=== PATIENT | female | born 1955 | race Caucasian/White ===

== ENCOUNTER 2018-06-11 13:00 | Outpatient (RCR) | payer OTHER, SELFPAY ==
--- NOTE | 2018-05-14 15:34 | PTTR_ITS ---
DATE: 05/14/18 SUBJECTIVE: Ghazala reporting feeling good today. She notes the burning sensation on the top of her shoulder she felt after last session did not last. She thinks she is moving her arm a little better today. OBJECTIVE: Manual therapy: (07774z3). Mobilize right GH joint into all planes. Begin with scapular jiggles, inferior and posterolateral glides. Overpressure stretching into all planes to her tolerance providing distraction through flexion ROM for improvements in comfort. She tolerates 140 degrees flexion here today with end range discomfort. ER continues to be tight to about 20-25 degrees. Utilized METs to increase ROM without a positive effect. Internal rotation is to 60 degrees with protraction at the scapula. Therapeutic procedures (03720n7). * X See flow sheet: For gentle scapular stabilization activities, AAROM tasks. Add in scapular depression to pt's program today with good tolerance. * X Provided skilled instruction in proper exercise performance: * X Provided skilled manual cues to facilitate proper muscle recruitment and/ or movement pattern: Tactile cueing provided through right scapula to avoid compensatory movement patterns with multiple exercises today. She does improve her technique and positioning. * X Other: Ends with UBE cycle via wellness program followed by 10 minutes of cryo therapy. Direct treatment time: 25 minutes Total treatment time: 40 minutes Rona Escamilla, SIGNAL MECHANIC
--- NOTE | 2018-05-18 14:17 | PTTR_ITS ---
DATE: 05/18/18 SUBJECTIVE: Pt states that she is still having significant limitation of the shoulder but she does finally see her surgeon today. OBJECTIVE: Manual therapy: (61522e2). Pt placed in the supine position receiving gentle oscillatory lateral distraction as well as scapular jiggles to decrease muscle tension. Gently stretched through the pectorals and biceps with antagonist muscle action with low load long duration holds. Pt mobilized into 90* of abduction but significantly elevates the shoulder girdle adding to some of her compensation. A posterior lateral glide of the humeral head is applied to try to release some of this apprehension and insecurity of the shoulder but does very little to decrease the compensatory movement. She is mobilized from 70* of scaption into about 40* of ER when trying to approach 90* of abduction with the ER held at its terminal range. She instinctively splints and guards the shoulder releasing any of the ER that was gained. IR is able to be mobilized to about 45* with overhead shoulder flexion utilized glenohumeral approximation to relieving traction. This is available close to 135* today. She receives a gentle posterior cuff mobilization for desensitization myofascial release. Pt tolerates tx well. Direct treatment time: 30 minutes Total treatment time: 30 minutes
--- NOTE | 2018-05-20 11:18 | PTTR_ITS ---
DATE: 05/20/18 SUBJECTIVE: Ghazala reporting feeling about the same. She does note that her surgeon did want her to start pool therapy. OBJECTIVE: Manual therapy: (53936y8). Mobilizations applied at the right GH joint all planes. Perform inferior and posterolateral glides, PROM and overpressure stretching into each plane. She tolerates 140 degrees flexion, ER to 25, IR to 70, pure abduction to 70 degrees and then going into the scaption plane she tolerates 100 degrees with some compensatory movement patterns. In left sidelying perform DTM techniques to the posterior capsule and upper trap musculature. Therapeutic procedures (46971c8). * X See flow sheet: For AAROM activities, light scapular stabilization. Add in rhythmic stabilization and serratus punch ups in supine position today. * X Provided skilled instruction in proper exercise performance: * X Provided skilled manual cues to facilitate proper muscle recruitment and/ or movement pattern: * X Other: Ends with ice x 10 minutes. Direct treatment time: 30 minutes Total treatment time: 40 minutes Rona Escamilla, WIRE FRAME LAMP SHADE MAKER
--- NOTE | 2018-05-21 15:26 | AT_ITS ---
05/21/18 Pt no showed for todays scheduled PT appt.
--- NOTE | 2018-05-22 11:23 | PTTR_ITS ---
DATE: 05/22/18 SUBJECTIVE: Ghazala reporting some discomfort into her arm pit. Otherwise feels about the same. She is a little worried about loosing ground next week only getting mobilized one time but she is looking forward to trying out the pool. OBJECTIVE: We discuss visit options next week and pt will try the pool 2x and clinic 1x and see how this influences her symptoms. If she feels like she is getting tight we can change that the following week as necessary. Manual therapy: (27694i6). Mobilize right GH joint all planes of motion. Provide inferior and posterolateral glides, PROM into all planes. Perform overpressure stretching into shoulder flexion, and ER where she tolerates 140 degrees flexion, ER to 40 degrees today all with end range discomfort. Perform STM through pec minor, subscapularis, posterior cuff and upper trap musculature. Therapeutic procedures (92172d9). * X See flow sheet: Focus on scapular stabilization including rhythmic stabilization at 90 degrees of shoulder flexion, serratus punch ups and ball vs. wall exercise. * X Provided skilled instruction in proper exercise performance: * X Provided skilled manual cues to facilitate proper muscle recruitment and/ or movement pattern: Tactile cueing and visual feedback in the mirror to decrease disaster director movement patterns. * X Other: Ends with ice x 10 minutes to the right shoulder. Direct treatment time: 30 minutes Total treatment time: 30 minutes Rona Escamilla PTA
--- NOTE | 2018-05-26 09:00 | PTTR_ITS ---
DATE: 05/26/18 SUBJECTIVE: Ghazala reports that she just came from her PCP, I was told I have diabetes, but I don't know much about it. OBJECTIVE: * [X] Aquatic Therapy - (10625 x1): Patient completed a therapeutic exercise program in an aquatic setting for UE strengthening and improved shoulder ROM with decompression for pain relief, as per flow sheet. Patient required constant cuing throughout for shoulder depression. Patient required skilled instruction for proper exercise performance. Patient ends with UBE cycling. Direct treatment time: 20 minutes Total treatment time: 35 minutes
--- NOTE | 2018-05-28 13:53 | 90DAYPTPN_ITS ---
90 DAY PROGRESS NOTE DATE: 05/28/18 REFERRING: Claudio Pham MD REFERRING PROVIDER DIAGNOSIS:: S/P Right side distal clavicle resection, capsular release, rotator cuff repair PHYSICAL THERAPY DIAGNOSIS: Difficulty reaching overhead, difficulty negotiating objects with the R UE. REPORTING PERIOD (for progress note and discharge note only): 02/17/18 through SUBJECTIVE: I keep hoping that it will loosen up and I think it has a little bit it is still pretty stiff. OBJECTIVE: Treatment: Manual Therapy (69619a3): Patient was placed in supine and mobilized with oscillatory lateral distraction and scapular jiggles to decrease muscle tension. She was lightly stretched through the pectorals and biceps with low load long duration holds. Patient then mobilized through the plane of abduction with use of a posterior lateral guided through the humeral head. She was placed in 90 degrees of scaption and mobilized through light ER to about 45 degrees. With horizontal abduction into 90 degrees of abduction she does lose a few degrees of motion to 35 degrees. Patient was guided to 45 degrees of internal rotation. She was then mobilized through the cervical spine with gentle traction and guided into cervical retraction. Gentle passive rotations were promoted with good tolerance to end limit. Light stretching of the levator scapulae and upper trapezius with low load long duration holds. Gentle soft tissue mobilization to the posterior cuff at the end of the session. Treatment time: 40 minutes of direct patient care. ASSESSMENT: X Patient requires continued skilled Physical Therapy intervention to remediate the above functional limitations to return to: * X Premorbid level of function. * X Full functional mobility. * X Return to work demands. * X Improve quality of life. Patient has made slight progress in her motion but is still quite limited in active practice. Her active motion is only a fraction of her passive motion in terms of flexion and she still has a long way to go with external and internal rotation. She has gained some weight during this long ordeal with the shoulder and with a comorbidity through the ankle which has increased her health risk. She has been placed in the pool with therapy for strengthening of the right upper extremity and for global conditioning. Goal progression: (copy/paste from IE or last PN). 1. Able to lift and object of 10# to shoulder height. Goal not met 2. Patient making a full functional return to work. Goal not met 3. 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 Goal not met PLAN: Patient to continue treatment, 3 x per week, for 5 weeks, adjusting frequency of visits per patient symptoms and response to treatment. Treatment to include: * X Manual therapy - 31503U-[] (indicate any further detail here): [] * X Therapeutic exercise - 29975U-[]. * X Ultrasound: * X EStim, unattended - 39287B-[]. * Aquatic Therapy Program Thank you for your continued support of this patient!
--- NOTE | 2018-05-28 16:22 | PTTR_ITS ---
DATE: 05/28/18 SUBJECTIVE: Ghazala states that she was a little sore following her last aquatic therapy session. OBJECTIVE: * [X] Aquatic Therapy - (39044 x2): Patient completed a therapeutic exercise program in an aquatic setting for UE strengthening and improved ROM with decompression for pain relief, as per flow sheet. Patient was able to tolerate a progression in her program today, see flow sheet for modifications made to reps and resistance. Patient continues to require cuing for posture and appropriate movement mechanics, specifically to avoid shoulder elevation with all exercises. Patient ends by simulating UBE cycling. Direct treatment time: 30 minutes Total treatment time: 40 minutes
--- NOTE | 2018-06-04 08:58 | PTTR_ITS ---
DATE: 06/04/18 SUBJECTIVE: Ghazala states that her shoulder feels much better following stretching performed in the clinic today, prior to her aquatic therapy session. OBJECTIVE: * [X] Aquatic Therapy - (29164 x1): Patient completed a therapeutic exercise program in an aquatic setting for scapular stabilization and shoulder strengthening with decompression for pain relief, as per flow sheet. Patient tolerated a slight progression in her program today, modifications made to reps are noted on flow sheet. Patient required cuing for appropriate posture and shoulder depression throughout session. Patient ends with simulation of UBE cycling. Direct treatment time: 15 minutes Total treatment time: 30 minutes
--- NOTE | 2018-06-04 11:00 | PTTR_ITS ---
DATE: 06/04/18 SUBJECTIVE: Ghazala reports that her shoulder seems a little more comfortable today. She did receive a cortisone injection to the R shoulder on Friday. She thinks this is helping a little bit. She notes some tightness through her armpit today. Manual therapy: ([id number]). Mobilize the R shoulder into all planes of motion , performed inferior/posterior lateral gliding, PROM and stretching in all planes. She does get some sensation of pulling through the pec and subscapularis when stretching into flexion. I do clear out the pec minor and subscap musculature with very little improvement in her comfort with stretching. She tolerates 130 degrees flexion with end range discomfort ER to 30, IR to 60 to 70 degrees with some protraction noted. In L sidelying perform deep tissue mobilization techniques to posterior capsule , upper trap and infraspinatus fossa. Defer Therex here in the clinic as patient is headed to the pool for aquatic therapy. Direct treatment time: 25 mins Total treatment time: 25 mins LB/dl
--- NOTE | 2018-06-09 10:59 | AT_ITS ---
06/09/18 ATx2 See flow sheet. Completing (R) UE scap thoracic stabilization program with open chain glenohumeral activities, skilled cueing throughout for proper lower trap and shoulder depression activation. Progressions made. Total Time 30 minutes Direct Time 30 minutes
--- NOTE | 2018-06-09 12:50 | PTTR_ITS ---
DATE: 06/09/18 SUBJECTIVE: Ghazala stating that her shoulder feels the same. She notes tightness up into her neck and into her arm pit. OBJECTIVE: Manual therapy: (87508o5). Mobilize right shoulder into all planes of motion. Perform inferior and posterolateral gliding, PROM and overpressure stretching to her tolerance. Flexion reaches 130, ER 30, IR 70. Perform DTM techniques through the pec minor musculature. In left sidelying clear trigger point in the right upper trap and infraspinatus as well as deep tissue work through the posterior capsule. Pt is then going to her aquatic therapy appointment. Direct treatment time: 30 minutes Total treatment time: 30 minutes Rona Escamilla PTA
--- NOTE | 2018-06-11 08:23 | AT_ITS ---
06/11/18 SUBJECTIVE: No new complaints. She does feel that the pool is helpful. OBJECTIVE: Aquatic Therapy 47455n3: Pt instructed in her aquatic therapy program as noted on her flow sheet for UE ROM activities, scapular stabilization and general conditioning. Skilled cueing provided for appropriate movement mechanics and scapular stabilization. See flow sheet for specifics. Direct time: 20 minutes of direct one on one skilled care with remaining time spent on less skilled task and cardiovascular exercise. Total time: 35 minutes Rona Escamilla, CLIENT TECHNICAL SPECIALIST
== END 2018-06-12 23:59 | disposition home or self-care (01) ==
LOC: PT 13:00
PROVIDERS: PCP Nurse Practitioner Family; Referring Provider Orthopaedic Surgery Adult Reconstructive Orthopaedic Surgery; Visit Provider Orthopaedic Surgery Adult Reconstructive Orthopaedic Surgery
DX: M75.31 Calcific tendinitis of right shoulder (principal); Z47.89 Encounter for other orthopedic aftercare
CPT/HCPCS: 97110; 97113; 97140

== ENCOUNTER 2018-11-16 00:19 | Outpatient (CLI) | payer MEDICARE, BC, SELFPAY ==
--- NOTE | 2018-11-16 11:24 | DI.MAMMO_ITS ---
SYMPTOMS/DIAGNOSIS: SCREENING, Z12.31 MAMMOGRAM: Mammograms were interpreted according to the usual protocol including computer analysis with CAD system, tomosynthesis and C view imaging. Comparison is made with exams from 2015 through 2018. The breasts are composed of heterogeneously dense fibroglandular tissue, breast density Category C. There has been no change in an ovoid area of density in the upper outer quadrant of the right breast. Benign appearing calcifications are again noted. No suspicious masses or suspicious microcalcifications are seen. IMPRESSION: Category 2, negative mammogram with benign findings. Yearly screening mammography is recommended. [facility] ASSESSMENT OF FINDINGS: Negative with benign findings. Category 2. Patient will receive a letter notifying them of these results. Bi-RADS category C. The breasts are heterogeneously dense, which may obscure small masses.
== END 2018-11-16 00:39 ==
PROVIDERS: PCP Nurse Practitioner Family; Visit Provider Nurse Practitioner Family
DX: Z12.31 Encounter for screening mammogram for malignant neoplasm of breast (principal)
CPT/HCPCS: 77063; 77067

== ENCOUNTER 2019-02-09 14:34 | Outpatient (REF) | payer MEDICARE, BC, SELFPAY ==
--- NOTE | 2019-02-09 13:45 | SKI_PTH ---
PATIENT: Ghazala Song LOC: [facility] U#:[id number] AGE/SX: 63/F ROOM: RE02/09/[address]: Scarlet Brady : 1955 BED: DIS: 02/09/2019 SPEC #: [id number] RECD: 02/10/19 12:41 STATUS: ADRIANNA REEvan #: [id number] KATIE: 02/09/19 13:[address]: Scarlet Brady DEPT: Surgical Specimen RECD BY: Yadi Comer Tissues: 1 - SKIN BIOPSY(SHAVE/PUNCH) Procedures: SKIN LEVEL 4 Comments: [id number]
== END 2019-02-09 14:54 ==
LOC: NCHCN 14:34
PROVIDERS: PCP Nurse Practitioner Family; Visit Provider Nurse Practitioner Family
DX: C44.519 Basal cell carcinoma of skin of other part of trunk (principal)
CPT/HCPCS: 88305

== ENCOUNTER 2019-03-15 12:27 | Outpatient (REF) | payer MEDICARE, BC, SELFPAY ==
[2019-03-15 22:27] LABS: ALT 41 U/L (12-78); AST 25 U/L (15-37); Albumin 3.9 g/dL (3.4-5.0); Alkaline Phosphatase 81 U/L (46-116); Anion Gap 10.2 mmol/L (3-11); BUN 9 mg/dL (7-18); Bilirubin, Total 0.5 mg/dL (0.2-1.0); CO2 28.8 mmol/L (21.0-32.0); CREATININE 0.82 mg/dL (0.55-1.02); Calculated LDL 70; Chloride 101 mmol/L (98-107); Cholesterol 141 mg/dL (50-200); Glucose 145 mg/dL (70-100); HDL Cholesterol 49 mg/dL (40-60); Potassium 3.8 mmol/L (3.5-5.1); Sodium 140 mmol/L (136-145); Total Protein 7.1 g/dL (6.4-8.2); Triglyceride 114 mg/dL (30-150); Vitamin B12 844 pg/mL (193-986)
== END 2019-03-15 12:47 ==
LOC: NCHCN 12:27
PROVIDERS: PCP Nurse Practitioner Family; Visit Provider Nurse Practitioner Family
DX: E11.9 Type 2 diabetes mellitus without complications (principal); I10 Essential (primary) hypertension; F41.8 Other specified anxiety disorders; G47.33 Obstructive sleep apnea (adult) (pediatric); G47.61 Periodic limb movement disorder; K76.0 Fatty (change of) liver, not elsewhere classified
CPT/HCPCS: 80053; 80061; 83721; 82607; 83735

== ENCOUNTER 2019-03-23 00:30 | Outpatient (CLI) | payer MEDICARE, BC, SELFPAY ==
--- NOTE | 2019-03-23 14:30 | DI.RAD_ITS ---
SYMPTOMS/DIAGNOSIS: ASYMPTOMATIC POSTMENOPAUSAL STATUS, Z78.0 DEXA SCAN: No REMIGIO was done due to patient's right shoulder surgery. For the lumbar spine, a T score of -1.4 and a Z score of 0.4 are consistent with osteopenia and an increased fracture risk. For the left hip, a T score of -1.7 and a Z score of -0.4 are consistent with osteopenia and an increased fracture risk. For the left forearm, a T score of -1.8 and a Z score of -0.1 are consistent with osteopenia and an increased fracture risk.
== END 2019-03-23 00:50 ==
PROVIDERS: PCP Nurse Practitioner Family; Visit Provider Nurse Practitioner Family
DX: Z13.820 Encounter for screening for osteoporosis (principal); Z78.0 Asymptomatic menopausal state; M85.88 Other specified disorders of bone density and structure, other site; M85.852 Other specified disorders of bone density and structure, left thigh; M85.832 Other specified disorders of bone density and structure, left forearm
CPT/HCPCS: 77080

== ENCOUNTER 2019-09-16 12:39 | Outpatient (REF) | payer MEDICARE, BC, SELFPAY ==
[2019-09-16 22:23] LABS: Abs Immature Grans 0.01 k/cumm (0.0-0.09); Absolute Basophil Count 0.04 k/cumm (0.0-0.2); Absolute Eosinophil Count 0.08 k/cumm (0.0-0.7); Absolute Lymphocyte Count 1.92 k/cumm (1.2-3.4); Absolute Monocyte Count 0.48 k/cumm (0.11-0.7); Absolute Neutrophil Count 2.27 k/cumm (1.2-6.7); Basophils % 0.8; Eosinophils % 1.7; HCT 42.2 % (36.0-46.0); HGB 13.6 g/dL (12.0-15.5); Immature Grans % 0.2; Mean Corp. HGB Concentration 32.2 g/dL (32.0-36.0); Mean Corpuscular Hemoglobin 29.8 pg (27.0-33.0); Mean Corpuscular Volume 92.5 fL (80-95); Mean Platelet Volume 10.2 fL (8.0-11.0); Neutrophils % 47.3; Platelet Count 214 x1000/uL (130-400); RBC 4.56 m/cumm (4.00-5.20); RBC Distribution Width 13.1 % (11.7-14.6)
[2019-09-16 22:33] LABS: Iron 93 ug/dL (50-170)
[2019-09-16 22:58] LABS: Anion Gap 8.7 mmol/L (3-11); BUN 16 mg/dL (7-18); CO2 31.3 mmol/L (21.0-32.0); CREATININE 0.83 mg/dL (0.55-1.02); Chloride 101 mmol/L (98-107); Glucose 88 mg/dL (74-106); Potassium 3.9 mmol/L (3.5-5.1); Sodium 141 mmol/L (136-145); TSH (W/Ref FT4) 2.19 uIU/mL (0.36-3.74); Vitamin B12 510 pg/mL (193-986)
[2019-09-16 23:01] LABS: Vitamin D 25 Total 41.9 ng/ml (30-100)
== END 2019-09-16 12:59 ==
LOC: NCHCN 12:39
PROVIDERS: PCP Nurse Practitioner Family; Visit Provider Nurse Practitioner Family
DX: I10 Essential (primary) hypertension (principal); E11.9 Type 2 diabetes mellitus without complications; K76.0 Fatty (change of) liver, not elsewhere classified; K30 Functional dyspepsia; G47.61 Periodic limb movement disorder; G47.33 Obstructive sleep apnea (adult) (pediatric); M85.80 Other specified disorders of bone density and structure, unspecified site
CPT/HCPCS: 80048; 82306; 82607; 83540; 83735; 84443; 85025

== ENCOUNTER → 2020-04-07 13:32 | Outpatient (BNVA) | payer MEDICARE, BC, SELFPAY | PROVIDERS: PCP Nurse Practitioner Family; Referring Provider Nurse Practitioner Family; Visit Provider Surgery | DX: R10.13 Epigastric pain (principal); Z01.818 Encounter for other preprocedural examination; I10 Essential (primary) hypertension | CPT/HCPCS: 99202; 99213 ==

== ENCOUNTER 2020-04-10 08:15 | Outpatient (CLI) | payer MEDICARE, BC, SELFPAY ==
[2020-04-10 23:24] LABS: COVID-19 RT-PCR UVMMC Result Negative (Negative)
== END 2020-04-10 08:35 ==
PROVIDERS: PCP Nurse Practitioner Family; Visit Provider Surgery
DX: Z01.818 Encounter for other preprocedural examination (principal); Z03.818 Encounter for observation for suspected exposure to other biological agents ruled out
CPT/HCPCS: U0003

== ENCOUNTER 2020-04-12 07:13 | Day surgery (SDC) | payer MEDICARE, BC, SELFPAY ==
[2020-04-12 07:37] VITALS: BP 144/75; PULSE 81; RESP 18; TEMP 36.5; O2SAT 98
--- NOTE | 2020-04-12 07:37 | ENDO_ITS ---
Date of service: 04/12/20 Time of Service: 08:26 Endoscopy Report DATE OF PROCEDURE: 04/12/20 PRE-OP DIAGNOSIS: Intermittent dyspepsia, hx of GERD POST-OP DIAGNOSIS: same (mild esophagitis) PROCEDURE: EGD with biopsies SURGEON: Dayanara Hutchison ANESTHESIA: other (General/ ASA 2/Raudel Silverman CRNA) ESTIMATED BLOOD LOSS: 5 PATHOLOGY: other (Antrum bx, GE junction bx) COMPLICATIONS: None DISPOSITION: same day INDICATIONS: Mrs. Song is a pleasant 65 year old female being seen in the office today for increased and heartburn type symptoms. The patient has had heartburn and GERD in the past and was started on omeprazole 40 mg daily which has controlled her symptoms. About 3 or 4 weeks ago she developed daily heartburn symptoms despite her 40 mg of omeprazole daily so she was referred to our office. She tells me today that the heartburn symptoms have resolved. She continues on her omeprazole 40 mg daily. She denies any other symptoms like diarrhea. She does not recall being under more stress when she was having the symptoms. She denies any changes in bowel habits nausea or vomiting. She has never had an upper endoscopy before. FINDINGS: mild inflammation of the stomach and mild esophagitis PROCEDURE DESCRIPTION: After informed consent was obtained the patient was take to the procedure room and placed in a supine position. Monitors were applied and a time out was done. The patients name, date of , procedure type, allergies to medications and metal in their body was reviewed. A bite block was placed and the patient was sedated. Once sedated and comfortable the gastroscope was advanced through the oropharynx which was grossly normal into the esophagus. The proximal and mid- esophagus were normal. In the distal esophagus there was mild inflammation noted. The scope was advanced into the stomach and through the pylorus into the 3rd portion of the duodenum. The duodenum was noted to be normal. The scope was retracted back into the stomach. There was mild inflammation. There were no ulcers. Biopsies were done to rule out H. pylori. The scope was retro-flexed. The cardia and fundus were noted to be normal. There was no hiatal hernia noted. The scope was retracted back into the esophagus and biopsies were done of the GE junction to rule out Martinez's. The Z line was irregular with inflammation noted . The GE junction was at 35 cm. The scope was removed and the patient was woken up and taken back to [facility] in stable condition. Follow up: I will call patient with results. Continue on Omeprazole 40 mg daily
--- NOTE | 2020-04-12 07:44 | W.PM.DSUDISC ---
Discharge Plan Disposition Patient Disposition: HOME Condition: Good Discharge Details Reason For Visit: DYSPESIA Attending Provider: Dayanara Hutchison Primary Care Provider: Scarlet Brady Home Meds and New Rx's Prescriptions: Continued Victoza 3-Morgan 0.6 mg/0.1 mL (18 mg/3 mL) pen injector 1.2 mg SC DAILY RF: 0 atorvastatin 10 mg tablet 10 mg PO DAILY RF: 0 loratadine 10 mg tablet 10 mg PO DAILY RF: 0 aspirin [Adult Low Dose Aspirin] 81 mg tablet,delayed release (DR/EC) 81 mg PO DAILY RF: 0 diphenhydramine-acetaminophen [Tylenol PM Extra Strength] 25-500 mg tablet 1 tab PO QHS PRNRF: 0 Slow-Mag 71.5 mg tablet,delayed release (DR/EC) 71.5 mg PO DAILY RF: 0 senna 8.6 mg capsule 8.6 mg PO BID PRNRF: 0 docusate sodium [Colace] 100 mg capsule 100 mg PO DAILY RF: 0 melatonin 3 mg capsule 3 mg PO HS PRNRF: 0 duloxetine [Cymbalta] 60 MG capsule,delayed release(DR/EC) 60 mg PO DAILY RF: 0 levonorgestrel-ethinyl estrad [Levora-28] 1 EACH tablet 1 ea PO every friday after m RF: 0 sertraline [Zoloft] 25 MG tablet 50 mg PO DAILY RF: 0 Prilosec 10 MG susp,delayed release for recon 40 mg PO DAILY RF: 0 Humira 10 MG/0.2 ML syringe kit 10 mg SQ twice a month RF: 0 losartan 25 MG tablet 25 mg PO DAILY RF: 0 ibuprofen 800 MG tablet 800 mg PO TID Qty: 90 RF: 1 acetaminophen [Mapap Extra Strength] 500 MG tablet 1,000 mg PO Q8H PRN PRNQty: 120 RF: 3 metformin 500 mg tablet extended release 24 hr 2,000 mg PO DAILY RF: 0 Discharge Instructions Additional Instructions: Findings: mild inflammation Continue on Prilosec 40 mg daily If you have breakthrough symptoms then can take some TUMS as well. I will call you with results of the biopsies I took Please call if you develop: fevers >101.5 Nausea or Vomiting Abdominal pain that is not transient DAY SURGERY UNIT POST ENDOSCOPY INSTRUCTIONS 1. Because there will be medication in your system for the next 24 hours, you may feel a little sleepy. Your coordination will be affected. Therefore: a. Do not drive or operate dangerous equipment for 24 hours. b. Do not drink alcohol beverages for 24 hours (not even beer). c. Plan to go home and rest for the day. 2. Generally there are no restrictions on your activity after a day or so has gone by, but you may feel a bit fatigued for a few days. 3 After you arrive home you may have a light meal and return to a normal diet as you can tolerate it without feeling sick to your stomach. 4. After surgery, you may feel pain or discomfort. This should be only transient, but if it persists please contact your doctor. 5. If there are any questions regarding the findings of your procedure, please feel free to contact your doctor. 6. If you are unable to contact your doctor with a problem, contact the hospital at [phone]. 7. Continue all your regular medications unless directed otherwise. I understand the above instructions and have no questions. Signature of Patient or Responsible Adult Escort Date/Time Name of Responsible Adult Escort Signature of Nurse Date/Time Activity:: Activity as Tolerated Diet:: As Tolerated Discharge Orders Discharge Orders: Discharge Order (Routine); Ordered 04/12/20 Ordered By: Dayanara Hutchison
[2020-04-12] MEDS: Lactated Ringers 1,000 ML 80 ML IV (08:03)
--- NOTE | 2020-04-12 08:20 | STOM_PTH ---
PATIENT: Ghazala Song LOC: [facility] U#:[id number] AGE/SX: 65/F ROOM: RE04/12/[address]: Dayanara Hutchison MD : 1955 BED: DIS: 04/12/2020 SPEC #: [id number] RECD: 04/12/20 12:20 STATUS: ADRIANNA RE #: [id number] KATIE: 04/12/20 08:[address]: Dayanara Hutchison DEPT: Surgical Specimen RECD BY: Yadi Comer ENTERED: 04/12/20 12:25 SP TYPE: STOMACH OTHR DR: Scarlet Brady Tissues: 1 - STOMACH BIOPSY 2 - ESOPHAGUS BIOPSY Procedures: GROSS AND MICRO LEVEL 4 Comments: [id number]
[2020-04-12 09:14] VITALS: BP 131/75; PULSE 80; RESP 16; TEMP 36; O2SAT 100
== END 2020-04-12 09:25 | disposition home or self-care (01) ==
PROVIDERS: PCP Nurse Practitioner Family; Visit Provider Surgery
PROC: 0DJ68ZZ Inspection of Stomach, Via Natural or Artificial Opening Endoscopic (ICD-10-PCS; CPT 43235; principal; 2020-04-12 08:15)
DX: K21.0 Gastro-esophageal reflux disease with esophagitis (principal); K30 Functional dyspepsia; G47.33 Obstructive sleep apnea (adult) (pediatric); I10 Essential (primary) hypertension; E11.9 Type 2 diabetes mellitus without complications
CPT/HCPCS: 43239; 88305; J2001; J2704

== ENCOUNTER 2020-10-09 18:13 | Outpatient (REF) | payer MEDICARE, BC, SELFPAY ==
[2020-10-09 20:45] LABS: Abs Immature Grans 0.02 10^3/uL (0.0-0.06); Absolute Basophil Count 0.08 10^3/uL (0.0-0.2); Absolute Eosinophil Count 0.14 10^3/uL (0.0-0.7); Absolute Lymphocyte Count 2.78 10^3/uL (1.2-3.4); Absolute Monocyte Count 0.52 10^3/uL (0.1-0.8); Absolute Neutrophil Count 3.88 10^3/uL (1.2-6.7); Basophils % 1.1; Eosinophils % 1.9; HCT 43.2 % (36.0-46.0); HGB 13.9 g/dL (11.2-15.7); Immature Grans % 0.3; Lymphocytes % 37.5; MCH 30.3 pg (27.0-33.0); MCHC 32.2 % (32.0-36.0); MCV 94.1 fL (80-95); MPV 11.2 fL (8.0-11.0); Neutrophils % 52.2; Nucleated RBC 0 %; Platelet Count 215 10^3/uL (130-400); RBC 4.59 10^6/uL (3.93-5.22); RDW 11.7 % (11.7-14.6); RDW-SD 40.4 fL; WBC 7.42 10^3/uL (4.4-10.8)
[2020-10-09 21:17] LABS: ALT 47 U/L (14-59); AST 27 U/L (15-37); Albumin 4.1 g/dL (3.4-5.0); Alkaline Phosphatase 60 U/L (46-116); Anion Gap 6.6 mmol/L (3-11); BUN 14 mg/dL (7-18); Bilirubin, Total 0.4 mg/dL (0.2-1.0); CO2 30.4 mmol/L (21.0-32.0); Calcium 8.6 mg/dL (8.5-10.1); Chloride 103 mmol/L (98-107); Glucose 85 mg/dL (74-106); Magnesium 2.2 mg/dL (1.8-2.4); Sodium 140 mmol/L (136-145); TSH (W/Ref FT4) 2.84 uIU/mL (0.36-3.74); Vitamin B12 964 pg/mL (193-986)
== END 2020-10-09 18:33 ==
LOC: NCHCN 18:13
PROVIDERS: PCP Nurse Practitioner Family; Visit Provider Nurse Practitioner Family
DX: I10 Essential (primary) hypertension (principal); E11.9 Type 2 diabetes mellitus without complications; F41.8 Other specified anxiety disorders; N39.46 Mixed incontinence; G47.33 Obstructive sleep apnea (adult) (pediatric); M85.80 Other specified disorders of bone density and structure, unspecified site; K76.0 Fatty (change of) liver, not elsewhere classified; K30 Functional dyspepsia
CPT/HCPCS: 80053; 82607; 83735; 84443; 85025

== ENCOUNTER 2020-12-17 14:26 | Emergency (ER) | payer MEDICARE, BC, SELFPAY ==
--- NOTE | 2020-12-17 14:15 | RT.EKG_ITS ---
APPROVED REPORT Exam: Resting ECG Patient Location: E HR:89 bpm ECG Measurements Heart Rate 89 AXIS MN 136 P 42 QRSd 80 QRS 5 QT 358 T 59 QTc 435 Conclusion Sinus rhythm...normal P axis, V-rate 60- 99
[2020-12-17 14:32] VITALS: BP 144/64; PULSE 96; RESP 22; TEMP 36.6; O2SAT 95
[2020-12-17 14:37] VITALS: RESP 22
--- NOTE | 2020-12-17 14:45 | DI.RAD_ITS ---
EXAM: XR PORTABLE CHEST AP CLINICAL HISTORY: chest pain TECHNIQUE: 2D digital imaging was performed. COMPARISON: No exams were available for comparison FINDINGS: LUNGS: Clear. No pleural abnormality seen. HEART: Normal. MEDIASTINUM: Normal. BONES: Right shoulder prosthesis. IMPRESSION: No acute pulmonary findings. DATA REPOSITORY: RADIATION DOSE DELIVERED:
[2020-12-17] MEDS: Aspirin 81 MG CHEW 243 MG CH (14:58)
[2020-12-17 15:02] LABS: Abs Immature Grans 0.03 10^3/uL (0.0-0.06); Absolute Basophil Count 0.06 10^3/uL (0.0-0.2); Absolute Eosinophil Count 0.05 10^3/uL (0.0-0.7); Absolute Lymphocyte Count 2.11 10^3/uL (1.2-3.4); Absolute Monocyte Count 0.58 10^3/uL (0.1-0.8); Absolute Neutrophil Count 5.76 10^3/uL (1.2-6.7); Basophils % 0.7; Eosinophils % 0.6; HCT 43.3 % (36.0-46.0); HGB 14.4 g/dL (11.2-15.7); Immature Grans % 0.3; Lymphocytes % 24.6; MCH 30.2 pg (27.0-33.0); MCHC 33.3 % (32.0-36.0); MCV 90.8 fL (80-95); MPV 9.7 fL (8.0-11.0); Monocytes % 6.8; Nucleated RBC 0 %; Platelet Count 213 10^3/uL (130-400); RBC 4.77 10^6/uL (3.93-5.22); RDW 11.6 % (11.7-14.6); RDW-SD 38.7 fL; WBC 8.59 10^3/uL (4.4-10.8)
[2020-12-17 15:09] VITALS: BP 139/77; PULSE 86; RESP 19; O2SAT 99
[2020-12-17 15:16] LABS: PTT Activated 22.4 sec (21.0-27.5); Prothrombin Time 10.4 sec (9.3-11.0)
--- NOTE | 2020-12-17 15:18 | ED.GENADUL_ITS ---
Discharge Plan Disposition Patient Disposition: HOME Condition: Stable Discharge Details Clinical Impression: Chest tightness Primary Care Provider: Scarlet Brady ED Provider: Yadi Belcher Home Meds and New Rx's Prescriptions: Continued Victoza 3-Morgan 0.6 mg/0.1 mL (18 mg/3 mL) pen injector 1.2 mg SC DAILY RF: 0 atorvastatin 10 mg tablet 10 mg PO DAILY RF: 0 loratadine 10 mg tablet 10 mg PO DAILY RF: 0 aspirin [Adult Low Dose Aspirin] 81 mg tablet,delayed release (DR/EC) 81 mg PO DAILY RF: 0 Slow-Mag 71.5 mg tablet,delayed release (DR/EC) 71.5 mg PO DAILY RF: 0 senna 8.6 mg capsule 8.6 mg PO BID PRNRF: 0 docusate sodium [Colace] 100 mg capsule 100 mg PO DAILY RF: 0 melatonin 3 mg capsule 3 mg PO HS PRNRF: 0 duloxetine [Cymbalta] 60 MG capsule,delayed release(DR/EC) 60 mg PO DAILY RF: 0 sertraline [Zoloft] 25 MG tablet 50 mg PO DAILY RF: 0 Prilosec 10 MG susp,delayed release for recon 40 mg PO DAILY RF: 0 Humira 10 MG/0.2 ML syringe kit 10 mg SQ twice a month RF: 0 losartan 25 MG tablet 25 mg PO DAILY RF: 0 acetaminophen [Mapap Extra Strength] 500 MG tablet 1,000 mg PO Q8H PRN PRNQty: 120 RF: 3 Discharge Instructions Additional Instructions: You are leaving against our recommendation, please follow-up with your doctor on Friday Continue taking your aspirin as prescribed Please return immediately with persistent or worsening symptoms Tylenol every 4-6 hours as needed for pain Do not engage in any new exercise regimen until you are cleared by your doctor Stand Alone Forms: Work Release Discharge Data Discharge Date/Time-TO BE ENTERED AT DEPARTURE: 12/17/20 18:40 Medical Decision Making <SOFIA Egan - Last Filed: 12/20/20 09:20> This is a 65-year-old female with a past medical history of anxiety, depression, hypertension, GERD, fibromyalgia, presenting with chest tightness, shortness of breath that began around 7:00 this morning. She felt as though her heart flutter. She made it very clear to me that she did not intend to be admitted to our facility or any facility for that matter. Patient took a single aspirin today, will initiate cardiac work-up, obtain D-dimer, and give 3 baby aspirin. Differential includes not excluded to ACS, pneumonia, PE, costochondritis, chest wall pain, GERD, esophagitis, etc. Initial laboratory values are unremarkable. D-dimer is 554, negative when age- adjusted. Troponin less than 0.05. Patient has a heart score of 4, admission was recommended but declined. She is willing to await a repeat troponin and EKG at the 3-hour terry. In the meantime we will give a single GI cocktail to see if there is any resolution of her symptoms. Medical Records Medical records reviewed: Yes I reviewed the patient's medical records. Imaging Data Radiologic Study: Attestation: I personally reviewed and interpreted this imaging study as follows: Imaging: X-Ray Radiologist's impression: Chest x-ray negative per radiology. Lab Data Lab results reviewed: Yes I reviewed the patient's lab results. Lab results narrative: Laboratory Tests Range/Units 12/17/20 12/17/20 12/17/20 14:40 14:40 14:40 WBC (4.4-10.8) 10^3/uL 8.59 RBC (3.93-5.22) 10^6/uL 4.77 Hgb (11.2-15.7) g/dL 14.4 Hct (36.0-46.0) % 43.3 MCV (80-95) fL 90.8 MCH (27.0-33.0) pg 30.2 MCHC (32.0-36.0) % 33.3 RDW (11.7-14.6) % 11.6 L Plt Count (130-400) 10^3/uL 213 MPV (8.0-11.0) fL 9.7 Immature Gran % 0.3 Neutrophils % 67.0 Lymphocytes % 24.6 Monocytes % 6.8 Eosinophils % 0.6 Basophils % 0.7 Nucleated RBC % % 0 Absolute Neutrophils (1.2-6.7) 10^3/uL 5.76 Absolute Lymphocytes (1.2-3.4) 10^3/uL 2.11 Absolute Monocytes (0.1-0.8) 10^3/uL 0.58 Absolute Eosinophils (0.0-0.7) 10^3/uL 0.05 Absolute Basophils (0.0-0.2) 10^3/uL 0.06 PT (9.3-11.0) sec 10.4 INR (0.9-1.1) 1.0 APTT (21.0-27.5) sec 22.4 D-Dimer (<500) ng/mlFEU 554 H Sodium (136-145) mmol/L 139 Potassium (3.5-5.1) mmol/L 3.8 Chloride (98-107) mmol/L 101 Carbon Dioxide (21.0-32.0) mmol/L 29.4 Anion Gap (3-11) mmol/L 8.6 BUN (7-18) mg/dL 12 Creatinine (0.55-1.02) mg/dL 1.0 Estimated GFR/1.73 m2 (mL/min/1.73m2) 55.30 Glucose (74-106) mg/dL 123 H Calcium (8.5-10.1) mg/dL 9.5 Magnesium (1.8-2.4) mg/dL 2.1 Total Bilirubin (0.2-1.0) mg/dL 0.7 AST (15-37) U/L 31 ALT (14-59) U/L 56 Alkaline Phosphatase (46-116) U/L 69 Troponin I (<0.06) ng/mL < 0.05 Total Protein (6.4-8.2) g/dL 7.8 Albumin (3.4-5.0) g/dL 4.1 Range/Units 12/17/20 17:43 WBC (4.4-10.8) 10^3/uL RBC (3.93-5.22) 10^6/uL Hgb (11.2-15.7) g/dL Hct (36.0-46.0) % MCV (80-95) fL MCH (27.0-33.0) pg MCHC (32.0-36.0) % RDW (11.7-14.6) % Plt Count (130-400) 10^3/uL MPV (8.0-11.0) fL Immature Gran % Neutrophils % Lymphocytes % Monocytes % Eosinophils % Basophils % Nucleated RBC % % Absolute Neutrophils (1.2-6.7) 10^3/uL Absolute Lymphocytes (1.2-3.4) 10^3/uL Absolute Monocytes (0.1-0.8) 10^3/uL Absolute Eosinophils (0.0-0.7) 10^3/uL Absolute Basophils (0.0-0.2) 10^3/uL PT (9.3-11.0) sec INR (0.9-1.1) APTT (21.0-27.5) sec D-Dimer (<500) ng/mlFEU Sodium (136-145) mmol/L Potassium (3.5-5.1) mmol/L Chloride (98-107) mmol/L Carbon Dioxide (21.0-32.0) mmol/L Anion Gap (3-11) mmol/L BUN (7-18) mg/dL Creatinine (0.55-1.02) mg/dL Estimated GFR/1.73 m2 (mL/min/1.73m2) Glucose (74-106) mg/dL Calcium (8.5-10.1) mg/dL Magnesium (1.8-2.4) mg/dL Total Bilirubin (0.2-1.0) mg/dL AST (15-37) U/L ALT (14-59) U/L Alkaline Phosphatase (46-116) U/L Troponin I (<0.06) ng/mL < 0.05 Total Protein (6.4-8.2) g/dL Albumin (3.4-5.0) g/dL ECG Data Attestation: I personally reviewed and interpreted this ECG (s) as follows: Interpretation: Please see official report by Dr. Christianson. Sinus rhythm, ventricular rate of 89. No STEMI. <SOFIA Morelos - Last Filed: 12/19/20 16:18> Patient is a heart score of 4 making her higher risk for a coronary event, I did recommend admission to the hospital however she has declined She does have acute negative EKGs and 2 - troponin value She has pleuritic with atypical chest pain presentation although given her comorbidities I did highly recommend admission Had mild improvement of symptoms with GI cocktail Patient is alert, oriented, of decisional capacity and declines admission, she understands the risks associated with her decision She states that she will call her doctor for evaluation tomorrow At time of reevaluation, she is discharged home in stable condition with stable vitals I did recommend that patient return for admission at her earliest ability and urged her to follow-up with her doctor tomorrow, she will continue her 81 mg aspirin at home HPI <SOFIA Egan - Last Filed: 12/20/20 09:20> General Mode of arrival: ambulatory . Date/Time Provider Initiated Documentation: 12/17/20 14:27 . Limitations to Documentation: no limitations . Information obtained by: patient . HPI Narrative: This is a 65-year-old female, past medical history that includes depression, fibromyalgia, GERD, hypertension, presenting to the ER for what she describes as chest tightness and feeling like she cannot take a deep breath. She states that she went to bed last night asymptomatic, awoke with this sensation in her lower central chest. She tells me it does not radiate anywhere however in triage she states it radiated down her back. She wonders if she may be in A. fib, she was told one time before that she may have been but this was never documented she is not anticoagulated. She states that her symptoms have been steady and present all day worse with movement, bending over or taking a deep breath. She denies recent illness or trauma. She reports a mild headache, denies neck pain, visual changes, back pain, abdominal pain, nausea, vomiting, pain or swelling in her legs, numbness, tingling, weakness. She reports the sensation in her chest more as a pressure or tightness, making it difficult to take a deep breath. This in turn causes her to have shortness of breath. She denies cough. She tells me that she had a normal stress test approximately 5 years ago. She occasionally gets these symptoms but today it lasted longer than usual so decided to come to the ER for evaluation. At its worst it was a 10 out of 10, now it is a 6 out of 10. She did take a single baby aspirin. Related Data Home Medications Medication Instructions Recorded Confirmed duloxetine [Cymbalta] 60 mg PO DAILY tab-cap 11/03/15 12/17/20 Prilosec 40 mg PO DAILY packet 01/29/17 12/17/20 sertraline [Zoloft] 50 mg PO DAILY tab-cap 01/29/17 12/17/20 Humira 10 mg SQ twice a month 03/17/17 12/17/20 acetaminophen [Mapap Extra 1,000 mg PO Q8H PRN PRN #120 tab 06/24/17 12/17/20 Strength] losartan 25 mg PO DAILY 06/24/17 12/17/20 aspirin 81 mg tablet,delayed 81 mg PO DAILY 03/27/20 12/17/20 release atorvastatin 10 mg tablet 10 mg PO DAILY 03/27/20 12/17/20 docusate sodium 100 mg capsule 100 mg PO DAILY 03/27/20 12/17/20 liraglutide 0.6 mg/0.1 mL (18 mg/3 1.2 mg SC DAILY 03/27/20 12/17/20 mL) subcutaneous pen injector loratadine 10 mg tablet 10 mg PO DAILY 03/27/20 12/17/20 magnesium chloride 71.5 mg 71.5 mg PO DAILY 03/27/20 12/17/20 (magnesium chloride) tablet,delayed release sennosides 8.6 mg capsule 8.6 mg PO BID PRN 03/27/20 12/17/20 melatonin 3 mg capsule 3 mg PO HS PRN 04/07/20 12/17/20 Previous Rx's Medication Instructions Recorded acetaminophen [Mapap Extra 1,000 mg PO Q8H PRN PRN #120 tab 06/24/17 Strength] Allergies Allergy/AdvReac Type Severity Reaction Status Date / Time lisinopril Allergy Intermediate coughing Verified 12/17/20 14:36 General Stated Complaint: Chest Pain EFRAÍN: 2 Review of Systems <SOFIA Egan - Last Filed: 12/20/20 09:20> Constitutional Constitutional: Denies fatigue, Denies fever(s), Reports headache(s) and Denies weakness Eyes Eyes: Denies change in vision ENT Ears, Nose, Mouth, and Throat: Reports headache(s) and Denies neck pain Cardiovascular Cardiovascular: Reports chest pain and Reports dyspnea Respiratory Respiratory: Denies cough and Reports dyspnea Gastrointestinal Gastrointestinal: Denies abdominal pain, Denies nausea and Denies vomiting Genitourinary Genitourinary: Denies dysuria Musculoskeletal Musculoskeletal: Denies back pain, Denies neck pain, Denies numbness and Denies tingling Integumentary/Breasts Skin/Breast: Denies rash Neurologic Neurologic: Reports headache(s), Denies numbness, Denies tingling and Denies weakness Endocrine Endocrine: Denies fatigue Hematologic/Lymphatic Hematologic/Lymphatic: Denies easy bleeding and Denies easy bruising PFSH <SOFIA Egan - Last Filed: 12/20/20 09:20> Medical History Depression Fibromyalgia GERD (gastroesophageal reflux disease) Hypertension Insomnia Lipoma of abdominal wall Surgical History Appendectomy section x2 Social History Smoking/Tobacco Use Status: Never Smoking risk assessment performed?: Yes Alcohol Intake: current Alcohol Intake frequency: holidays/special occasions only Drug use: Never Substance use type: does not use Do you feel safe at home: Yes Do you feel safe in your relationship?: Yes Exam <SOFIA Egan - Last Filed: 12/20/20 09:20> Const General: cooperative, healthy appearing, comfortable and no acute distress Orientation: alert, awake and oriented x3 HENMT Head: normal to inspection, normocephalic and atraumatic Eyes General: appearance normal, both eyes and all related structures Eyelids: eyelids normal Conjunctivae: conjunctivae normal Neck Neck: normal visual inspection, full ROM, trachea midline, supple and nontender Chest Chest: normal inspection of the chest and normal palpation of entire chest wall Resp Effort & Inspection: normal respiratory effort and able to speak in complete sentences Auscultation: clear to auscultation bilaterally Cardio Rate: regular rate Rhythm: regular rhythm GI Inspection: normal to inspection Palpation: soft, no pulsatile masses and nontender Auscultation: normal bowel sounds Back/Spine/Pelvis Back: No back tenderness Skin General skin exam: no rashes or lesions noted Neuro General: patient alert, patient awake, moves all extremities and no focal motor deficits Cognition: normal cognition Speech: speech normal Gait: normal gait Motor: muscle tone normal throughout Sensory Exam: no sensory deficits noted Extrem General: normal to inspection, full ROM, capillary refill normal, no pedal edema and no calf tenderness Psych Appearance: grossly normal Mental Status: mental status grossly normal Course <SOFIA Egan - Last Filed: 12/20/20 09:20> Vital Signs Vital signs: Vital Signs Temperature 36.6 C 12/17/20 14:32 Pulse 96 H 12/17/20 14:32 Respiratory Rate 22 12/17/20 14:32 Blood Pressure 144/64 H 12/17/20 14:32 Pulse Oximetry 95 12/17/20 14:32 Temperature 36.6 C 12/17/20 14:32 Temperature Source Temporal Artery Scan 12/17/20 14:32 Pulse 86 12/17/20 15:09 Respiratory Rate 19 12/17/20 15:09 Respiratory Effort Non-Labored 12/17/20 14:37 Respiratory Depth Normal 12/17/20 14:37 Respiratory Pattern Normal 12/17/20 14:37 Blood Pressure 139/77 12/17/20 15:09 Blood Pressure Position Supine 12/17/20 14:32 Pulse Oximetry 99 12/17/20 15:09 Oxygen Delivery Method Room Air 12/17/20 15:09 Oxygen Flow Rate 0 12/17/20 15:09 Pain Level 7 12/17/20 15:09 Lab/Test Results Lab/Test Results: Laboratory Tests Range/Units 12/17/20 12/17/20 14:40 14:40 WBC (4.4-10.8) 10^3/uL 8.59 RBC (3.93-5.22) 10^6/uL 4.77 Hgb (11.2-15.7) g/dL 14.4 Hct (36.0-46.0) % 43.3 MCV (80-95) fL 90.8 MCH (27.0-33.0) pg 30.2 MCHC (32.0-36.0) % 33.3 RDW (11.7-14.6) % 11.6 L Plt Count (130-400) 10^3/uL 213 MPV (8.0-11.0) fL 9.7 Immature Gran % 0.3 Neutrophils % 67.0 Lymphocytes % 24.6 Monocytes % 6.8 Eosinophils % 0.6 Basophils % 0.7 Nucleated RBC % % 0 Absolute Neutrophils (1.2-6.7) 10^3/uL 5.76 Absolute Lymphocytes (1.2-3.4) 10^3/uL 2.11 Absolute Monocytes (0.1-0.8) 10^3/uL 0.58 Absolute Eosinophils (0.0-0.7) 10^3/uL 0.05 Absolute Basophils (0.0-0.2) 10^3/uL 0.06 PT (9.3-11.0) sec 10.4 INR (0.9-1.1) 1.0 APTT (21.0-27.5) sec 22.4 Sign Out <SOFIA Egan - Last Filed: 12/20/20 09:20> Sign Out Data: Sign Out Comment: Patient presents for lower central chest tightness has been present all day upon waking around 7 AM. Initial work-up in the ER unremarkable. She did take a baby aspirin, given 3 additional. Patient agreeable to awaiting a repeat 3-hour troponin. We will trial a GI cocktail to see if there is a GI component to her symptoms. Chest x-ray pending. Patient has expressed her desire to be discharged if her repeat troponin is unremarkable. Last updated by Silverio Wilson PA at 12/17/20 16:11
[2020-12-17 15:20] LABS: ALT 56 U/L (14-59); AST 31 U/L (15-37); Albumin 4.1 g/dL (3.4-5.0); Alkaline Phosphatase 69 U/L (46-116); Anion Gap 8.6 mmol/L (3-11); BUN 12 mg/dL (7-18); Bilirubin, Total 0.7 mg/dL (0.2-1.0); CO2 29.4 mmol/L (21.0-32.0); Calcium 9.5 mg/dL (8.5-10.1); Chloride 101 mmol/L (98-107); Glucose 123 mg/dL (74-106); Magnesium 2.1 mg/dL (1.8-2.4); Potassium 3.8 mmol/L (3.5-5.1); Sodium 139 mmol/L (136-145); Total Protein 7.8 g/dL (6.4-8.2)
[2020-12-17 15:21] LABS: Troponin I < 0.05 ng/mL (<0.06)
[2020-12-17 15:32] LABS: D-Dimer 554 ng/mlFEU (<500)
[2020-12-17] MEDS: Normal Saline 1,000 ML 125 ML IV (15:57)
--- NOTE | 2020-12-17 16:24 | DI.VRAD_ITS ---
PROCEDURE INFORMATION: Exam: XR Chest Exam date and time: 12/17/2020 4:15 PM Age: 65 years old Clinical indication: Chest pain; Type not specified TECHNIQUE: Imaging protocol: XR of the chest Views: 1 view. COMPARISON: No relevant prior studies available. FINDINGS: Lungs: Unremarkable. No consolidation. Pleural spaces: Unremarkable. No pleural effusion. No pneumothorax. Heart/Mediastinum: Unremarkable. No cardiomegaly. Bones/joints: Right shoulder prosthesis in place. IMPRESSION: No evidence for acute abnormality in the chest. Dictated and Authenticated by: Samantha Cadena MD. Ordering:RADHA Sawyer MD
[2020-12-17 16:53] VITALS: BP 112/57; PULSE 80; RESP 15; O2SAT 95
--- NOTE | 2020-12-17 16:54 | NUR.NOTE ---
resting quietly, respirations even and unlabored
--- NOTE | 2020-12-17 17:45 | RT.EKG_ITS ---
APPROVED REPORT Exam: Resting ECG Patient Location: E HR:76 bpm ECG Measurements Heart Rate 76 AXIS WI 140 P 24 QRSd 85 QRS -2 QT 403 T 53 QTc 452 Conclusion Sinus rhythm...normal P axis, V-rate 60- 99
[2020-12-17 18:08] LABS: Troponin I < 0.05 ng/mL (<0.06)
[2020-12-17 18:35] VITALS: BP 112/89; PULSE 109; RESP 16; O2SAT 95
== END 2020-12-17 18:40 | disposition home or self-care (01) ==
PROVIDERS: Physician Assistant; Emergency Provider Physician Assistant; PCP Nurse Practitioner Family
DX: R07.89 Other chest pain (principal); R06.02 Shortness of breath
CPT/HCPCS: 36415; 80053; 93005; 96360; 96361; 99285; 71045; 83735; 84484; 85025; 85379; 85610; 85730; 93010

== ENCOUNTER 2021-01-04 00:55 | Outpatient (CLI) | payer MEDICARE, BC, SELFPAY ==
--- NOTE | 2021-01-04 09:00 | ETT_ITS ---
APPROVED REPORT Exam: Exercise Treadmill Patient Location: Out-Patient Room/Bed: Stress Nurse: Vickie Parrish RN Ordering Provider:JAROCHO LEIVA, Contact Number: [phone] BMI: 32.61 Baseline Rhythm: Sinus Rhythm Comment: PACs and PVC Indications: Chest pain Medical History Medical History: Anxiety, depression, hypertension, gerd, fibromyalgia, insomnia, osteopenia, DOMINGA, gl aucoma, diabetes type II, hyperlipidemia, obesity, fatty liver disease, basal cell carcinoma, glaucom a Cardiac Medications: losaratan, atorvastatin, aspirin, prilosec, humira, liraglutide, cymbalta, zolof t Allergies: lisinopril Cardiac Risk Factors: Hypertension, hyperlipidemia, diabetes type II, obesity Previous Cardiac Procedures: None Pretest Chest Pain Characteristics: None Exercise History: Sedentary Physical Disabilities: None Lung Sounds: Clear to auscultation Heart Sounds: Regular Stress Test Details Test: Exercise stress testing was performed using a Mani protocol. Rest Stress HR Resting HR Supine: 69 bpm Max Heart Rate (APMHR): 153 bpm Resting HR Standin bpm Target HR (85% APMHR): 130 bpm Max HR Achieved: 141 bpm % of APMHR: 92 Recovery HR: 83 bpm HR response to stress: Normal HR response to stress BP Resting BP Supine: 122/68 mmHg Resting BP Standin/70 mmHg Max BP: 180/80 mmHg Recovery BP: 138/70 mmHg BP response to stress: Normal blood pressure response to stress. ECG Resting ECG: Sinus Rhythm Ectopy: Frequent PACs, PVC Stress ECG: Sinus Tachycardia ST Change: No significant ST segment changes noted Arrhythmia: PAC, PVC, bigeminy Recovery ECG: Sinus Rhythm Recovery ST Change: No significant ST segment changes noted Recovery Arrhythmia: PAC, frequent PVCs Clinical Reason for Termination: Dyspnea, chest tightness Stress Symptoms: dyspnea, chest tightness Exercise duration: 6 min58 sec Highest Stage Reached: Stage 3: 3.4 mph at 14% grade. Exercise capacity: 8.54 METs Gold Treadmill Score: -1 Rate Pressure Product: [id number] Stress ECG Conclusion 1. The patient exercised for 7 minutes (9 METS). Exercise was stopped due to chest tightness. 2. The patient's blood pressure and heart rate augmented appropriately. 3. There was no evidence of ischemia on the ECG portion of the exam. Gold Treadmill Score is -1 which is Moderate risk. Stress Test Summary STAGE Time (mins) Speed (mph) Grade (%) HR BP SYMPTOMS METS Supine 69 122/68 Standing 73 126/70 1 3 1.7 10 115 130/82 4.6 2 6 2.5 12 130 140/80 7 3 9 3.4 14 141 dyspnea, chest tightness 4/10 10.2 1 min recovery 96 180/80 symptoms resolved 3 min recovery 83 160/76 6 min recovery 83 138/70
== END 2021-01-04 01:15 ==
PROVIDERS: PCP Nurse Practitioner Family; Visit Provider Nurse Practitioner Family
DX: R07.9 Chest pain, unspecified (principal); I49.1 Atrial premature depolarization; I49.3 Ventricular premature depolarization; I10 Essential (primary) hypertension; E78.5 Hyperlipidemia, unspecified; E11.9 Type 2 diabetes mellitus without complications; E66.9 Obesity, unspecified
CPT/HCPCS: 93016; 93018; 93017

== ENCOUNTER 2021-04-13 02:41 | Outpatient (CLI) | payer MEDICARE, BC, SELFPAY ==
--- NOTE | 2021-04-13 | DI.MAMMO_ITS ---
Exam(s) MAMMO SCREENING EXAM: MAMMO SCREENING CLINICAL HISTORY: SCREENING, Z12.39 TECHNIQUE: Mammograms were interpreted according to the usual protocol including computer analysis w [employer] system, tomosynthesis and C-view imaging. COMPARISON: FINDINGS: Breasts are heterogeneously dense. No dominant mass or suspicious clumped intramammary microcalcific ation is seen. Fairly stable benign-appearing calcifications are seen bilaterally. Asymmetric densi ty in the upper outer quadrant the right breast is unchanged comparison with previous examinations in clNovember 2018. IMPRESSION: No specific evidence of malignancy at this time. Routine screening examinations are suggested at yea rly intervals in this age group according to the ACS ACR guidelines. BI-RADS Category 1 - Negative Breast Density - Category C - Heterogeneously dense
== END 2021-04-13 03:01 ==
PROVIDERS: PCP Nurse Practitioner Family; Visit Provider Nurse Practitioner Family
DX: Z12.31 Encounter for screening mammogram for malignant neoplasm of breast (principal)
CPT/HCPCS: 77063; 77067

== ENCOUNTER 2021-08-02 01:51 | Outpatient (CLI) | payer MEDICARE, BC, SELFPAY ==
--- NOTE | 2021-08-02 | DI.US_ITS ---
Exam(s) US ABDOMEN EXAM: US ABDOMEN CLINICAL HISTORY: FATTY LIVER DISEASE,K76.0,ELEVATED LIVER ENZYMES,R74.8 TECHNIQUE: Ultrasound of complete upper abdomen performed using standard protocol. COMPARISON: Abdominal ultrasound March 2018 FINDINGS: There is no ascites evident. LIVER: Liver is again noted to be hyperechoic indicating steatosis.. There are no discrete focal hep atic lesions. GALLBLADDER/BILIARY: There are no gallstones. No gallbladder wall edema nor pericholecystic fluid. The common hepatic duct isslightly dilated,, measuring 8mm at the level of nasreen hepatis. PANCREAS: There is no evidence of pancreatic mass nor dilatation of the pancreatic duct. SPLEEN: Spleen size is upper normal, similar to previous. Measures 12.5 cm. KIDNEYS:Kidneys exhibit normal size with no evidence of solid mass, calculus, nor hydronephrosis. The re is a 3.5 x 3.4 cm cyst in the midpole region of the right kidney. ABDOMINAL AORTA: There is no evidence of abdominal aortic aneurysm. IVC: Normal diameter where visualized. IMPRESSION: 1. No evidence of cholelithiasis. Common hepatic duct is slightly prominent, exhibiting 8 millimete rs diameter 2. Hepatic steatosis and mild hepatomegaly. Unchanged from the prior 2018 study. No a patent lesio ns evident. 3. There is no ascites. Right kidney cyst as above, exhibiting minimal change from the 2018 study. No new solid renal masses . No hydronephrosis. DATA REPOSITORY:
== END 2021-08-02 02:11 ==
PROVIDERS: PCP Nurse Practitioner Family; Visit Provider Nurse Practitioner Family
DX: K76.0 Fatty (change of) liver, not elsewhere classified (principal); R74.8 Abnormal levels of other serum enzymes; R16.0 Hepatomegaly, not elsewhere classified; N28.1 Cyst of kidney, acquired
CPT/HCPCS: 76700

== ENCOUNTER 2021-12-03 16:19 | Outpatient (REF) | payer MEDICARE, BC, SELFPAY ==
[2021-12-03 20:56] LABS: Abs Immature Grans 0.04 10^3/uL (0.0-0.06); Absolute Basophil Count 0.08 10^3/uL (0.0-0.2); Absolute Eosinophil Count 0.14 10^3/uL (0.0-0.7); Absolute Monocyte Count 0.58 10^3/uL (0.1-0.8); Absolute Neutrophil Count 4.38 10^3/uL (1.2-6.7); Eosinophils % 1.7; HCT 44.7 % (36.0-46.0); HGB 14.6 g/dL (11.2-15.7); Immature Grans % 0.5; Lymphocytes % 34.9; MCHC 32.7 % (32.0-36.0); MPV 10.6 fL (8.0-11.0); Monocytes % 7.2; Neutrophils % 54.7; Nucleated RBC 0 %; Platelet Count 227 10^3/uL (130-400); RBC 4.86 10^6/uL (3.93-5.22); RDW 11.9 % (11.7-14.6); RDW-SD 40.6 fL; WBC 8.02 10^3/uL (4.4-10.8)
[2021-12-03 21:55] LABS: ALT 41 U/L (14-59); AST 29 U/L (15-37); Albumin 4.1 g/dL (3.4-5.0); Alkaline Phosphatase 63 U/L (46-116); Anion Gap 6.5 mmol/L (3-11); BUN 11 mg/dL (7-18); Bilirubin, Total 0.3 mg/dL (0.2-1.0); CO2 31.5 mmol/L (21.0-32.0); Calcium 9.1 mg/dL (8.5-10.1); Chloride 104 mmol/L (98-107); Estimated GFR 55.14 (mL/min/1.73m2); Glucose 78 mg/dL (74-106); Magnesium 2.1 mg/dL (1.8-2.4); Potassium 4.1 mmol/L (3.5-5.1); Sodium 142 mmol/L (136-145); Total Protein 7.2 g/dL (6.4-8.2); Vitamin B12 461 pg/mL (193-986)
== END 2021-12-03 16:20 | disposition home or self-care (01) ==
LOC: NCHCN 16:19
PROVIDERS: PCP Nurse Practitioner Family; Visit Provider Nurse Practitioner Family
DX: M85.88 Other specified disorders of bone density and structure, other site (principal); E11.9 Type 2 diabetes mellitus without complications; K76.0 Fatty (change of) liver, not elsewhere classified; N39.46 Mixed incontinence; G47.33 Obstructive sleep apnea (adult) (pediatric)
CPT/HCPCS: 80053; 82607; 83735; 85025

== ENCOUNTER 2021-12-24 08:19 | Outpatient (CLI) | payer MEDICARE, BC, SELFPAY ==
[2021-12-24 13:08] LABS: Source Nasal/Nares
[2021-12-24 20:23] LABS: COVID-19 PCR Negative (Negative)
== END 2021-12-24 08:20 | disposition home or self-care (01) ==
PROVIDERS: PCP Nurse Practitioner Family; Visit Provider Family Medicine
DX: Z20.822 Contact with and (suspected) exposure to COVID-19 (principal); Z01.818 Encounter for other preprocedural examination
CPT/HCPCS: 87635; U0005

== ENCOUNTER 2021-12-25 00:29 | Outpatient (CLI) | payer MEDICARE, BC, SELFPAY ==
--- NOTE | 2021-12-25 10:30 | DI.RAD_ITS ---
Exam(s) RF MODIFIED SPEECH BA SWALLOW TECHNIQUE: Modified barium swallow was performed in conjunction with speech pathology. CONTRAST MATERIAL: Multiple consistencies of oral barium including barium tablet were administered . COMPARISON: No exams were available for comparison FINDINGS: Note that this is not a dedicated esophagram, distal esophagus not evaluated. There is no evidence of aspiration or laryngeal penetration with any consistency. Oral transit withi n normal limits. A mildly narrowing thin web is seen at the pharyngeal esophageal junction. The cri copharyngeus impression is also somewhat prominent. The barium tablet passed through this area with minimal delay. Barium tablet passed into stomach.. No significant residue in the vallecula or piri form sinuses. Fluoro time 1 minute Speech pathology report to follow. . . . IMPRESSION: Mildly narrowing web at the pharyngeal esophageal junction. No evidence of aspiration or penetration. RADIATION DOSE DELIVERED: nneka Farah= 4.0 mGy
[2021-12-25] MEDS: Barium Sulfate Oral Paste 40% W/V 230 ML TUBE 13 ML PO (10:59)
[2021-12-25] MEDS: Barium Sulfate 40% W/V 240 ML BTL 70 ML PO (10:59)
[2021-12-25] MEDS: Barium Sulfate 81% w/w for Oral Suspension 148 GM BTL 70 GM PO (11:00)
[2021-12-25] MEDS: Barium Sulfate 700 MG TAB PO (11:01)
--- NOTE | 2021-12-25 11:52 | ST.MBS_ITS ---
Date of Service Date of service: 12/25/21 Time of Service: 10:30 Modified Barium Swallow Study Findings: Videofluoroscopic Swallowing Evaluation / Modified Barium Swallow Study (VFSE/MBSS) Speech Language Pathology Report ? IMPRESSIONS: Mild pharyngoesophageal dysphagia, likely chronic; dysphagia presentation likely due to CP prominence/hypertone secondary to chronic GERD. Also noting impact of ?webbing at proximal esophagus just below UES which also alters bolus flow and causes trace stasis/residue to which the patient may be sensate. This is particularly likely to become an issue with larger pills, or dry/dense/large bolus solids. Swallow safety is mildly impaired due to risk of choking on solid residue if unable to clear UES. Swallow efficiency is mildly impaired for the same reason. Patient appears to be at low risk for potential aspiration PNA, pulmonary compromise and low risk for malnutrition, low risk for dehydration. Diet modification is not indicated. Swallow prognosis is good given age, severity, nature of deficits, and pending patient/caregiver training in risk management as outlined. Patient may benefit from consult to medical provider for further management of anatomical difference. Pending patient goals and further consultation, she may be a good candidate for behavioral swallow rehabilitation to increase UES distension. ? PLAN: Diet recommendation: IDDSI Level 7-Regular Solids - add sauces and gravies and chew WELL 0-Thin Liquids Please see further details at www.iddsi.org Risk Management: Behavioral reflux precautions, including upright position during + 90 mins after meals. Small bites, approx [id number] Alternate solids/liquids as able Multiple swallows per solid bolus ([2-3]) to encourage clearance of pharyngeal stasis/residue Control risk factors for aspiration pneumonia via (a) thorough oral hygiene & (b) maintaining physical mobility as tolerated ? Specialist referrals: GI for assessment/management of stricture. ? Therapy: Defer to treating ASSISTED LIVING ADMINISTRATOR and per patient preference. Follow-up exam: N/A EXAMINATION SUBJECTIVE: Patient arrived on time, unaccompanied, agreeable to proceed with procedure as described. Ambulating independently, patient was able to stand independently for this study. ? OBJECTIVE: Videofluoroscopic Swallow Evaluation (VFSE/MBSS) was conducted in the lateral and [id number] projections by Speech-Language Pathologist, in collaboration with Radiologist, to evaluate oropharyngeal swallow function. ? Anatomic view under fluoroscopy: WFL Standard [place]. coin visible along posterior cervical spine, used for calibration purposes during analysis ? PO barium contrast trials: Oral barium water soluble contrast was administered as follows: IDDSI Level 0 Varibar thin liquid (40% w/v) IDDSI Level 2 Varibar nectar thick/mildly thick liquid (40% w/v) IDDSI Level 4 Varibar pudding/pureed/extremely thick (40% w/v) IDDSI Level 7 Regular Solid: 1/2 reji cracker coated in 3 mL Varibar pudding; 13 mm barium tablet ? ? PHYSIOLOGIC FINDINGS ? Oral Phase ? 1 Lip Closure: 0-No labial escape ? 2 Tongue Control: 0- Cohesive bolus between tongue to palatal seal ? 3 Bolus Preparation/Mastication: 0- Timely and efficient chewing/mashing 4 Bolus Transport/Lingual Motion: 0- Brisk tongue motion 5 Oral residue: 1- Trace residue lining oral structures Location: tongue ? 6 Initiation of pharyngeal swallow:? 1- Bolus head in valleculae (pudding & solids) 2- Bolus head at posterior laryngeal surface of epiglottis (thin liquids) ? ? Pharyngeal Phase ? 7 Velar Elevation: 0- No bolus between soft palate and pharyngeal wall 8 Laryngeal Elevation: 0- Complete superior movement of thyroid cartilage with complete approximation of arytenoids to epiglottic petiole 9 Anterior Hyoid Excursion: 1- Partial anterior movement (and short duration at height of swallow) ? 10 Epiglottic Movement:? 0- Complete inversion 11 Laryngeal Vestibule Closure: 0- Complete; no air/contrast in laryngeal vestibule Penetration not observed ? 12 Pharyngeal Stripping Wave:? 0- Present; complete ? 13 Pharyngeal Contraction: 0- Complete ? 14 PES/UES Opening:? 1- Partial distension and partial duration; partial obstruction of flow radiologist noting CP prominence, see radiology note for further detail. ?- With 13mm tablet, patient required 2nd swallow to clear tablet from oral cavity. Tablet required 3rd swallow to clear UES vs proximal esophagus due to CP bar or webbing. 15 Tongue Base Retraction: 1- Trace column of contrast between tongue base and posterior pharyngeal wall ? 16 Pharyngeal residue:? 1- Trace residue within or on pharyngeal structures Location:Tongue base, Valleculae, Pyriform sinuses ? [place]ma Pharyngeal Residue Severity Rating Scale (YPRS) (Bonnie et al, 2015) ? Vallecula Residue Severity I None 0% No residue II Trace 1-5% Trace coating of the mucosa III Mild 5-25% Epiglottic ligament visible IV Moderate 25-50% Epiglottic ligament covered V Severe >50% Filled to epiglottic rim] ? Pyriform Sinus Residue Severity I None 0% No residue II Trace 1-5% Trace coating of the mucosa III Mild 5-25% Up wall to quarter full IV Moderate 25-50% Up wall to half full V Severe >50% Filled to aryepiglottic fold ? Esophageal Phase ? 17 Esophageal Clearance Upright Position: 1- Esophageal retention (trace, at level of esophageal webbing, proximal esoph. near UES) NOTE: This study was performed for interpretation only of the oropharyngeal and pharyngoesophageal domains of swallowing. It is not intended to diagnose any other radiologic abnormalities or substitute for a formal esophagram study. ? Overall 8-Point Penetration-Aspiration Scale (PAS) (Rosenbek, et al, 1996) 1 - No material enters the airway. 2 - Material enters the airway, remains above the vocal folds, and is ejected? from the airway. 3 - Material enters the airway, remains above the vocal folds, and is not? ejected from the airway. 4 - Material enters the airway, contacts the vocal folds, and is ejected from the? airway. 5 - Material enters the airway, contacts the vocal folds, and is not ejected from? the airway. 6 - Material enters the airway, passes below the vocal folds, and is ejected into? the larynx or out of the airway. 7 - Material enters the airway, passes below the vocal folds, and is not ejected? from the trachea despite effort. 8 - Material enters the airway, passes below the vocal folds, and no effort is? made to eject. ? Clinical Indicator(s) of Prandial/Postprandial Aspiration: n/a ? Dysphagia Outcome and Severity Scale (MACK) LEVEL 6 - Full PO: normal diet - Within functional limits/modified independence ? Thank you for allowing me to take part in this patient's care. Please feel free to contact me with any questions/concerns. ? Lilian Ackerman M.S., [facility]-ASSISTED LIVING ADMINISTRATOR Speech Language Pathologist [phone] Coding CPT Codes MOTION FLUOROSCOPY/SWALLOW - [id number] ([id number])
== END 2021-12-25 00:49 ==
PROVIDERS: PCP Nurse Practitioner Family; Visit Provider Speech-Language Pathologist
DX: R13.10 Dysphagia, unspecified (principal)
CPT/HCPCS: 92526; 92611; 74221

== ENCOUNTER → 2022-02-14 14:35 | Outpatient (BNVA) | payer MEDICARE, BC, SELFPAY | PROVIDERS: PCP Nurse Practitioner Family; Referring Provider Nurse Practitioner Family; Visit Provider Physical Therapy Assistant | DX: K21.9 Gastro-esophageal reflux disease without esophagitis (principal); R10.13 Epigastric pain; R13.10 Dysphagia, unspecified; G47.33 Obstructive sleep apnea (adult) (pediatric); E11.9 Type 2 diabetes mellitus without complications; I10 Essential (primary) hypertension | CPT/HCPCS: 99214 ==

== ENCOUNTER 2022-03-12 02:32 | Outpatient (CLI) | payer MEDICARE, BC, SELFPAY ==
[2022-03-12 09:55] LABS: Source Nasal/Nares
[2022-03-12 12:07] LABS: COVID-19 PCR Negative (Negative)
== END 2022-03-12 02:33 | disposition home or self-care (01) ==
LOC: LBO 02:32
PROVIDERS: PCP Nurse Practitioner Family; Visit Provider Surgery
DX: Z20.822 Contact with and (suspected) exposure to COVID-19 (principal); Z01.818 Encounter for other preprocedural examination
CPT/HCPCS: 87635; U0005

== ENCOUNTER 2022-03-13 08:48 | Day surgery (SDC) | payer MEDICARE, BC, SELFPAY ==
--- NOTE | 2022-03-12 14:33 | NUR.NOTE ---
X2 messages left on patients voicemail with arrival time and NPO instructions, unable to reach patient directly. Informed office.Nursing Note:
--- NOTE | 2022-03-13 06:37 | ENDO_ITS ---
Date of service: 03/13/22 Time of Service: 10:52 Endoscopy Report DATE OF PROCEDURE: 03/13/22 PRE-OP DIAGNOSIS: dyspepsia POST-OP DIAGNOSIS: other (gastritis and reflux esophagitis) PROCEDURE: EGD with biopsies SURGEON: Dayanara Hutchison ANESTHESIA TYPE: General:No Airway ESTIMATED BLOOD LOSS: 5 PATHOLOGY: other (antrum bx, GE junction bx) COMPLICATIONS: None DISPOSITION: same day INDICATIONS: Patient is a challenging historian, when asked if she was taking her H2 kimber and PPI she initially said she was not taking these due to the inconvenience as well as the possible side effects they may have on her osteopenia, however later in the conversation stated she was taking these medications daily. She states she is not taking the carfate as prescribed by her PCP. She has made some modifications to her diet, however has not been able to eliminate coffee/ caffeine from her diet. Her symptoms have worsened since her last EGD in 2019. Strongly encouraged her to try to reduce/eliminate consumption of coffee, products containing caffeine such as tea, soda, chocolate, tomato based products and spicy foods. Encouraged her to take her medications as prescribed. -Discussed Upper endoscopy procedure and the need to be NPO after midnight the night prior. Discussed possible complications of the procedure to include bleeding, pain, perforation, missed small lesion/polyp/ulcers, sore throat, aspiration and adverse reaction to the medications or sedation. Questions were answered to patient?s satisfaction. No guarantees were implied or given.? Reviewed COVID pre-caution's and pre-procedure testing. Patient is scheduled for COVID test. Instructions of testing location were provided. Patient verbalized understanding. P// EGD under sedation FINDINGS: mild inflammation in the antrum and moderate inflammation in the esophagus at the GE junction. Possible Martinez's PROCEDURE DESCRIPTION: After informed consent was obtained the patient was take to the procedure room and placed in a supine position. Monitors were applied and a time out was done. The patients name, date of , procedure type, allergies to medications and metal in their body was reviewed. A bite block was placed and the patient was sedated. Once sedated and comfortable the gastroscope was advanced through the o ropharynx which was grossly normal into the esophagus. The proximal and mid- esophagus were normal. In the distal esophagus there was moderate inflammation noted. The scope was advanced into the stomach and through the pylorus into the 3rd portion of the duodenum. The duodenum was noted to be normal. The scope was retracted back into the stomach and biopsies were done to rule out H. pylori. There were no ulcers. The scope was retroflexed. The cardia and fundus were noted to be normal. There was no hiatal hernia noted. The scope was retracted back into the esophagus and biopsies were done of the GE junction to rule out Martinez's. The Z line was irregular. The GE junction was at 38 cm. The scope was removed and the patient was woken up and taken back to [facility] in stable condition.
--- NOTE | 2022-03-13 06:38 | W.PM.DSUDISC ---
Discharge Plan Disposition Patient Disposition: HOME Condition: Stable Discharge Details Reason For Visit: Dyspepsia Attending Provider: Dayanara Hutchison Primary Care Provider: Scarlet Brady Home Meds and New Rx's Prescriptions: Continued atorvastatin 10 mg tablet 10 mg PO DAILY loratadine 10 mg tablet 10 mg PO DAILY aspirin [Adult Low Dose Aspirin] 81 mg tablet,delayed release (DR/EC) 81 mg PO DAILY Slow-Mag 71.5 mg tablet,delayed release (DR/EC) 71.5 mg PO DAILY senna 8.6 mg capsule 8.6 mg PO BID PRN docusate sodium [Colace] 100 mg capsule 100 mg PO DAILY Victoza 2-Morgan 0.6 mg/0.1 mL (18 mg/3 mL) pen injector 0.6 mg subcut DAILY duloxetine [Cymbalta] 60 MG capsule,delayed release(DR/EC) 60 mg PO DAILY diphenhydramine-acetaminophen [Tylenol PM Extra Strength] 25-500 mg tablet 1 tab PO QHS PRN gabapentin 800 mg tablet 800 mg PO TID fluticasone propionate [Flonase Allergy Relief] 50 mcg/actuation spray,suspension 1 spray intranasal BID Rx Instructions: administer into each nostril sucralfate [Carafate] 1 gram tablet 1 g PO QACHS pantoprazole 40 mg tablet,delayed release (DR/EC) 40 mg PO BID sertraline [Zoloft] 25 mg tablet 100 mg PO DAILY losartan 25 MG tablet 25 mg PO DAILY Label Comments: 11/17/17-PT STATES CURRENT DOSE IS 50MG DAILY--EMERY LIND acetaminophen [Mapap Extra Strength] 500 MG tablet 1,000 mg PO Q8H PRN PRNQty: 120 3RF Discontinued famotidine [Zantac-360 (famotidine)] 20 mg tablet 20 mg PO DAILY Discharge Instructions Instructions: Diet for Stomach Ulcers and Gastritis (ED), Esophagitis (DC), Gastritis (DC) Additional Instructions: Findings: Inflammation of the stomach and esophagus Meds: please continue Pantoprazole 40 mg 2 x a day and start Carafate (sucralfate). Stop pepcid Please call if you develop: fevers >101.5 Nausea or Vomiting Abdominal pain that is not transient Rectal bleeding that is more then a tbsp A hard abdomen and inability to pass gas [facility] POST ENDOSCOPY INSTRUCTIONS Instructions for everyone who is given Anesthesia: For your safety, please do the following for the next 24 Hours: a. Do not drive or operate dangerous equipment b. Do not drink alcohol beverages or use any recreational drugs for the first 24 hours or while taking pain medications. The medications in your body may have a reaction that can be dangerous. c. Do not make any important decisions or sign any important papers 1. Generally there are no restrictions on your activity after a day or so has gone by, but you may feel a bit fatigued for a few days. 2. After you arrive home you may have a light meal and return to a normal diet as you can tolerate it without feeling sick to your stomach. 3. After surgery, you may feel pain or discomfort. This should be only transient, but if it persists please contact your doctor. 4. If there are any questions regarding the findings of your procedure, please feel free to contact your doctor. 6. If you are unable to contact your doctor with a problem, contact the hospital at [phone]. 7. Continue all your regular medications unless directed otherwise. I understand the above instructions and have no questions. Signature of Patient or Responsible Adult Escort Date/Time Name of Responsible Adult Escort Signature of Nurse Date/Time Activity:: Activity as Tolerated Diet:: low acid Discharge Orders Discharge Orders: Discharge Order (Routine); Ordered 03/13/22 Ordered By: Dayanara Hutchison
[2022-03-13 08:52] VITALS: BP 149/81; PULSE 73; RESP 16; TEMP 36.3; O2SAT 98
[2022-03-13] MEDS: Lactated Ringers 1,000 ML 80 ML IV (09:16)
--- NOTE | 2022-03-13 10:10 | W.ANESPRE ---
General Info Date of Service Date Performed: 03/13/22 Height: 5 ft 4 in Weight: 89.4 kg Body Mass Index (BMI): 33.8 Surgical Procedure: Operation Date: 03/13/22 11:50 Proposed Procedure Side Surgeon p Gastroscopy w/Biopsy Dayanara Hutchison MD Meds Allergies and Home Medications Allergies Allergy/AdvReac Type Severity Reaction Status Date / Time lisinopril Allergy Intermediate coughing Verified 02/14/22 14:38 NSAIDS (Non-Steroidal AdvReac Severe Other (See Unverified 03/12/22 15:37 Anti-Inflamma Comment) Home Medication Medication Instructions Recorded duloxetine 60 mg capsule,delayed 60 mg PO DAILY 11/03/15 release (Cymbalta) acetaminophen 500 mg tablet (Mapap 1,000 mg PO Q8H PRN PRN #120 tabs 06/24/17 Extra Strength) losartan 25 mg tablet 25 mg PO DAILY 06/24/17 aspirin 81 mg tablet,delayed 81 mg PO DAILY 03/27/20 release (Adult Low Dose Aspirin) atorvastatin 10 mg tablet 10 mg PO DAILY 03/27/20 docusate sodium 100 mg capsule 100 mg PO DAILY 03/27/20 (Colace) loratadine 10 mg tablet 10 mg PO DAILY 03/27/20 magnesium chloride 71.5 mg 71.5 mg PO DAILY 03/27/20 (magnesium chloride) tablet,delayed release (Slow-Mag) sennosides 8.6 mg capsule (senna) 8.6 mg PO BID PRN 03/27/20 diphenhydramine 25 1 tab PO QHS PRN 01/29/22 mg-acetaminophen 500 mg tablet (Tylenol PM Extra Strength) famotidine 20 mg tablet 20 mg PO DAILY 01/29/22 (Zantac-360 (famotidine)) fluticasone propionate 50 1 spray intranasal BID 01/29/22 mcg/actuation nasal spray,suspension (Flonase Allergy Relief) gabapentin 800 mg tablet 800 mg PO TID 01/29/22 pantoprazole 40 mg tablet,delayed 40 mg PO BID 01/29/22 release sertraline 25 mg tablet (Zoloft) 100 mg PO DAILY 01/29/22 sucralfate 1 gram tablet (Carafate) 1 g PO QACHS 01/29/22 liraglutide 0.6 mg/0.1 mL (18 mg/3 0.6 mg subcut DAILY 02/14/22 mL) subcutaneous pen injector (Simplify 2-Morgan) Current Visit Medications: Current Medications Generic Name Dose Route Start Last Admin Trade Name Freq PRN Reason Stop Dose Admin Hyoscyamine Sulfate 0.125 mg 03/13/22 06:38 Hyoscyamine 0.125 Mg Sl/Oral/Chew SL DIRECTED PRN Ringer's Solution 1,000 mls @ 80 mls/hr 03/13/22 06:00 03/13/22 09:16 IV 04/11/22 23:59 80 mls/hr INFUSION SCOTT Administration IV Miscellaneous Supplies 1 each 03/13/22 06:00 Iv Access IV 04/11/22 23:59 DIRECTED SCOTT Ondansetron HCl 4 mg 03/13/22 06:38 Ondansetron 4 Mg/2 Ml Vial IVP Q4H PRN PRN Nausea / Vomiting Sodium Chloride 0 ml 03/13/22 06:00 Normal Saline Flush 10 Ml Syr IV 04/11/22 23:59 PRN PRN Sodium Chloride 0 ml 03/13/22 06:00 Normal Saline 10 Ml Vial IJ 04/11/22 23:59 DIRECTED PRN Sterile Water 0 ml 03/13/22 06:00 Water,Injection,Sterile 10 Ml Vial IJ 04/11/22 23:59 DIRECTED PRN PFSH Active Problems Active Problems: Problem Status Onset Code Dyspepsia R10.13 GERD (gastroesophageal reflux disease) K21.9 Chest tightness R07.89 DOMINGA (obstructive sleep apnea) G47.33 T2DM (type 2 diabetes mellitus) E11.9 Chest pain R07.9 Arrhythmia I49.9 Hereditary hemochromatosis E83.110 Medical History Medical History A-fib Pt. 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 extremley challenging historian-unable to fully complete pre-op as patient has to abruptly go. Informed anesthesia to review prior to case Surgical History Surgical History Appendectomy section x2 History of esophagogastroduodenoscopy (EGD) (~2019) Tobacco Smoking/Tobacco Use Status: Never Alcohol Alcohol Intake: current Alcohol intake frequency: holidays/special occasions only Substance Use Substance use type: does not use Details: Pt. augustus challenging historian-unable to fully complete pre-op as patient has to abruptly go. Informed anesthesia to review prior to case Vital Signs and Lab Results Vital Signs Most Recent Vital Signs in EMR: Most Recent Vital Signs Temp Pulse Resp BP Pulse Ox 36.3 C L 73 16 149/81 H 98 03/13/22 08:52 03/13/22 08:52 03/13/22 08:52 03/13/22 08:52 03/13/22 08:52 Point of Care Results Point of Care Results: Finger Stick Blood Glucose 128 03/13/22 08:59 Lab Results Blood Type / Crossmatch: No Data to Display Complete Blood Count: No Data to Display Complete Metabolic Panel: No Data to Display Liver Function Panel: No Data to Display Coagulation Panel: No Data to Display Cardiac Panel: No Data to Display Arterial Blood Gas: No Data to Display Venous Blood Gas: No Data to Display Pancreas Panel: No Data to Display Thyroid Panel: No Data to Display Infectious Disease: Coronavirus (COVID-19)(PCR) Negative (Negative) 03/12/22 07:55 Coronavirus 2019 Source Nasal/Nares 03/12/22 07:55 Blood Cultures: No Data to Display Toxicology Panel: No Data to Display Anesthesia Assessment and Plan Anesthesia History Personal History: No History of Anesthesia Complications Family History: No Family History of Anesthesia Complications Exercise Tolerance Exercise Tolerance: Metabolic Equivalents>4 Pertinent Negatives Pertinent Negatives: No Symptoms of GERD, No Major Pulmonary Symptoms or Complaints and No History of CVA/TIA Cardiac & Pulmonary Exam Cardiac Exam: Normal S1/S2 Heart Sounds Pulmonary Exam: Clear Bilateral Breath Sounds Implantable Cardiac Device Does patient have a Pacemaker or an ICD?: No Airway Exam Known Difficult Airway: No Mallampati Class: 2 Mouth Opening: Normal (> 3cm) Thyromental Distance: Greater than 3 cm Neck Range of Motion: Full ROM Neck Circumference: Normal Teeth Condition: Removable Dentures/Plates Upper and Removable Dentures/Plates Lower ASA Classification ASA Score: ASA 2 Emergency Case?: No NPO Status NPO Status: NPO Clears >2 hours, Solids >8 hours Anesthesia Plan Resuscitation Status: Full Code Anesthesia Technique: General Anesthesia Airway Planned: Natural Airway Monitors Used: Standard Monitors
[2022-03-13 10:13] VITALS: BMI 33.8
--- NOTE | 2022-03-13 11:37 | STOM_PTH ---
PATIENT: Ghazala Song LOC: [facility] U#:[id number] AGE/SX: 67/F ROOM: RE03/13/[address]: Dayanara Hutchison MD : [id number] BED: DIS: 03/13/2022 SPEC #: [id number] RECD: 03/13/22 13:00 STATUS: ADRIANNA REEvan #: [id number] KATIE: 03/13/22 11:[address]: Dayanara Hutchison DEPT: Surgical Specimen RECD BY: Yadi Comer ENTERED: 03/13/22 13:02 SP TYPE: STOMACH OTHR DR: Scarlet Brady Tissues: 1 - STOMACH BIOPSY 2 - ESOPHAGUS BIOPSY Procedures: GROSS AND MICRO LEVEL 4 Comments: [id number]
[2022-03-13 11:47] VITALS: BP 120/69; PULSE 68; RESP 16; TEMP 36.4; O2SAT 97
[2022-03-13 12:15] VITALS: BP 131/76; PULSE 66; RESP 16; TEMP 36.4; O2SAT 97
--- NOTE | 2022-03-13 12:24 | W.ANESPOSTOP ---
Postoperative Evaluation Date, Time and Location Date Performed: 03/13/22 Time Performed: 11:47 Patient Location: Day Surgery Unit Vital Signs Most Recent Imported Vital Signs: Most Recent Vital Signs Temp Pulse Resp BP Pulse Ox 36.4 C L 68 16 120/69 97 03/13/22 11:47 03/13/22 11:47 03/13/22 11:47 03/13/22 11:47 03/13/22 11:47 Pain Score Most Recent Pain Score: Most Recent Pain Score Pain Level 0 03/13/22 11:47 Assessment Mental Status: Awake (Alert & Oriented to Patient Baseline) Airway and Respiratory Function: Patent airway with normal (patient baseline) respiratory exam Cardiovascular Function: Hemodynamically Stable Hydration Status: Adequately Hydrated Nausea & Vomiting: No Nausea or Vomiting Pain: Pt. Denies Any Pain Peripheral Nerve Block: Patient did not receive a nerve block
== END 2022-03-13 12:45 | disposition home or self-care (01) ==
PROVIDERS: PCP Nurse Practitioner Family; Visit Provider Surgery
PROC: 0DJ68ZZ Inspection of Stomach, Via Natural or Artificial Opening Endoscopic (ICD-10-PCS; CPT 43235; principal; 2022-03-13 11:45)
DX: K21.00 Gastro-esophageal reflux disease with esophagitis, without bleeding (principal); K29.70 Gastritis, unspecified, without bleeding; E11.9 Type 2 diabetes mellitus without complications; G47.33 Obstructive sleep apnea (adult) (pediatric); E83.110 Hereditary hemochromatosis; K22.89 Other specified disease of esophagus; K31.89 Other diseases of stomach and duodenum
CPT/HCPCS: 43239; 88305

== ENCOUNTER → 2022-07-09 01:47 | Outpatient (CLI) | payer MEDICARE, BC, SELFPAY ==
--- NOTE | 2022-07-09 | DI.MRI_ITS ---
Exam(s) MR LUMBAR SPINE WO EXAM: MR LUMBAR SPINE WO CLINICAL HISTORY: LUMBAR PAIN, M54.50. TECHNIQUE: Multiplanar multisequence MRI of the Lumbar spine was performed. COMPARISON: MR MRI L LOWER JOINT WO AND W from 05/30/2016 US ABDOMEN ULTRASOUND (P) from 04/06/2018 FINDINGS: Bones: The last intervertebral disc space is designated the L5/S1 level for the numbering purpose of this examination. The vertebral body heights are well maintained. There is a left convex curvature of the lumbar spine. Degenerative disc disease and facet arthropathy is seen at multiple levels in t he lumbar spine. Cord: The conus tip ends at the T12 level. It is of normal size and signal intensity. T12-L1: Note is made of a small central disc herniation. No significant central spinal canal stenosi s results. No central spinal canal or neural foraminal stenosis. L1-2: No disc herniations or bulges are present. No central spinal canal or neural foraminal stenosis . L2-3: There is a mild diffuse disc bulge. No significant central spinal canal stenosis is seen. The re is moderate right and mild left neural foraminal stenosis. L3-4: There is a diffuse disc bulge. This in conjunction with the degenerative changes causes modera tely severe central spinal canal stenosis. There is moderate bilateral neural foraminal stenosis. L4-5: There is a mild diffuse disc bulge. This in conjunction with the degenerative changes causes s evere central spinal canal stenosis. There is mild bilateral neural foraminal stenosis, left greater than right. L5-S1: No disc herniations or bulges are present. No central spinal canal or neural foraminal stenosi s. Soft tissues: The visualized SI joints and sacrum are well maintained. The paraspinal soft tissues ar e unremarkable. Visualized abdominal organs: There is a stable simple cysts seen in the right kidney. This was prese nt on ultrasound from 04/06/2018. IMPRESSION: 1. Multilevel degenerative changes in the lumbar spine as described above. 2. The findings do result in central spinal canal and neural foraminal stenosis. The findings are mo st marked at L3-4 and L4-L5. DATA REPOSITORY:
--- NOTE | 2022-07-09 | DI.MRI_ITS ---
Exam(s) MR LOWER JOINT LT WO EXAM: MR LOWER JOINT LT WO CLINICAL HISTORY: LT ANKLE PAIN, M25.572 TECHNIQUE: Multiplanar multisequence MRI was performed without intravenous contrast. COMPARISON: MR MRI L LOWER JOINT WO AND W from 06/11/2017 FINDINGS: BONES/JOINTS: There is no acute fracture. No bony lesion is identified. Nonspecific marrow edema is seen particularly in the talus. The talar dome is smooth. The ankle mortise is maintained. No joint e ffusion is present. There is edema seen in the posterior talus and the os trigonum. Mild hyperintense signal seen on the T2 weighted images around the os trigonum. LIGAMENTS: The tibiofibular and calcaneofibular ligaments are intact. The talofibular ligaments are i ntact. The deltoid ligament is intact. The syndesmosis is unremarkable. Sinus tarsi is normal. MUSCULOTENDINOUS STRUCTURES: Achilles tendon: Unremarkable. Plantar fascia: Unremarkable. Anterior Extensor tendons: Unremarkable. Posterior Tibialis: Unremarkable. Flexor Digitorum longus: Unremarkable. Flexor Hallucis longus: Unremarkable. Peroneus longus: Unremarkable. Peroneus brevis:Unremarkable. SOFT TISSUES: Unremarkable. OTHER FINDINGS: None. IMPRESSION: 1. No evidence of a tendon or ligament tear. 2. Findings raising the question of an os trigonum syndrome. Please correlate clinically. DATA REPOSITORY:
== END ==
PROVIDERS: PCP Nurse Practitioner Family; Visit Provider Nurse Practitioner Family
DX: M47.816 Spondylosis without myelopathy or radiculopathy, lumbar region (principal); M48.061 Spinal stenosis, lumbar region without neurogenic claudication
CPT/HCPCS: 73721; 72148

== ENCOUNTER → 2022-08-06 01:34 | Outpatient (CLI) | payer MEDICARE, BC, SELFPAY ==
--- NOTE | 2022-08-06 11:15 | DI.US_ITS ---
Exam(s) US ABDOMEN LIMITED EXAM: US ABDOMEN LIMITED CLINICAL HISTORY: FATTY LIVER DISEASE, K76.0; ELEVATED LIVER ENZYMES, R74.8 TECHNIQUE: Ultrasound abdomen performed using standard protocol. COMPARISON: US US ABDOMEN from 08/02/2021 FINDINGS: There is no ascites evident. LIVER: Hyperechoic indicating steatosis. There is a well-defined 2.6 x 1.1 x 2.4 cm hypoechoic area adjacent to the portal vein region. Difficult to determine whether this is a lesion or focal fatty p arenchymal sparing. No other similar findings seen liver. GALLBLADDER/BILIARY: There are no gallstones. No gallbladder wall edema nor pericholecystic fluid. The common hepatic duct isnot dilated, measuring 3-4mm at the level of nasreen hepatis. PANCREAS: There is no evidence of pancreatic mass nor dilatation of the pancreatic duct. RIGHT KIDNEY:There is a 4 x 3.8 cm benign cyst at the midpole level. No solid lesions. No calculi. No hydronephrosis IMPRESSION: 1. No evidence of cholelithiasis nor dilatation of the biliary tree. 2. There is a 26 x 11 x 24 millimeter hypoechoic ???nodule??? in the medial aspect of the liver port a hepatis region. There is a possibility that this may just represent focal fatty parenchymal sparin g in this patient has a steatotic liver. Nevertheless, this difficult to differentiate from an actua l liver mass. Recommend follow-up contrast infused MRI using hemangioma protocol. 3. There is 4 cm benign cyst in the right kidney. No solid mass in the right kidney. There is no ascites. DATA REPOSITORY:
== END ==
PROVIDERS: PCP Nurse Practitioner Family; Visit Provider Nurse Practitioner Family
DX: N28.1 Cyst of kidney, acquired (principal)
CPT/HCPCS: 76705

== ENCOUNTER → 2022-09-25 01:31 | Outpatient (CLI) | payer MEDICARE, BC, SELFPAY ==
[2022-09-25 12:40] LABS: Estimated GFR 60.98 (mL/min/1.73m2)
[2022-09-25] MEDS: Gadoterate meglumine 20 ML VIAL IVP (12:56)
--- NOTE | 2022-09-25 13:30 | DI.MRI_ITS ---
Exam(s) MR ABDOMEN WO/W EXAM: MR ABDOMEN WO/W CLINICAL HISTORY: LIVER MASS,K76.89,HEMANGIOMA,FATTY LIVER,F/U ABNL IMAGING, R93.5 TECHNIQUE: Multiplanar multisequence MRI of the Abdomen was performed. CONTRAST MATERIAL: IV Contrast: 18 mL of Dotarem contrast administered. COMPARISON: US US ABDOMEN LIMITED from 08/06/2022 FINDINGS: Liver: The liver measures 18 cm in length. There does appear to be fatty infiltration of the liver a nd focal fatty sparing adjacent to the portal vein. (Series 7001, image 32). Pancreas: Unremarkable. Gallbladder and Bile Ducts: No evidence of cholelithiasis or biliary ductal dilatation. Adrenals: Unremarkable. Kidneys: There is a 4.4 x 4.2 cm simple right renal cyst. No follow-up is recommended. The kidneys are otherwise unremarkable. Spleen: Unremarkable. Bowel: There is a hiatal hernia present. The bowel is otherwise unremarkable. Aorta: Unremarkable. Soft Tissues: Unremarkable. Bone: Unremarkable. Lymph Nodes: Unremarkable. IMPRESSION: 1. No evidence of a hepatic mass or enhancing lesion. Findings suggestive of focal fatty sparing adj acent to the portal vein. This appears to correspond to the ultrasound abnormality. 2. Mild hepatomegaly. 3. Simple right renal cyst. No follow-up is recommended. DATA REPOSITORY:
== END ==
PROVIDERS: PCP Nurse Practitioner Family; Visit Provider Nurse Practitioner Family
DX: R93.5 Abnormal findings on diagnostic imaging of other abdominal regions, including retroperitoneum (principal); R16.0 Hepatomegaly, not elsewhere classified; N28.1 Cyst of kidney, acquired
CPT/HCPCS: 74183; 82565

== ENCOUNTER 2022-11-18 09:31 | Outpatient (CLI) | payer MEDICARE, BC, SELFPAY ==
--- NOTE | 2022-11-18 07:45 | DI.RAD_ITS ---
Exam(s) XR PAIN CLINIC SACRIOILIAC 2V EXAM: XR PAIN CLINIC SACRIOILIAC 2V CLINICAL HISTORY: Dx: Sacroiliac Joint Dysfunction TECHNIQUE: 2D and realtime digital imaging was performed. CONTRAST MATERIAL: Refer to procedure report. COMPARISON: No exams were available for comparison FINDINGS: Fluoroscopy was provided for Dr. Hancock during the performance of a sacroiliac joint injection. Please refer to the procedure report for complete details. Ka,r=2.92 mGy IMPRESSION:
[2022-11-18 09:39] VITALS: BP 119/72; PULSE 86; RESP 20; TEMP 36.7; O2SAT 98
[2022-11-18 10:12] VITALS: BP 127/68; PULSE 79; RESP 21; O2SAT 96
[2022-11-18] MEDS: Omnipaque 240 MG/ML 50 ML BTL IJ (10:21)
[2022-11-18] MEDS: methylPREDNISolone ACETATE 80 MG/ML VIAL IJ (10:21)
[2022-11-18] MEDS: Bupivacaine 0.25% Pres-Free 30 ML VIAL IJ (10:22)
--- NOTE | 2022-11-18 10:28 | PDOC.PAIN_ITS ---
Date of service: 11/18/22 Time of Service: 10:28 Pain Clinic Procedure Note Procedure Note Procedure Note: INTRA-ARTICULAR SI JOINT INJECTION Ghazala Song has been referred to the [facility] for intra- articular SI joint injection. Pre-operative diagnosis: right sacroilitis Post-operative diagnosis: same as above Patient was interviewed and the medical record reviewed. There were no medical, pharmacologic, radiographic or other structural contraindications to attempting fluoroscopically guided intra-articular SI joint injection. Risks and expected side effects as well as potential benefit of the procedure were reviewed and voiced concerns addressed. The printed consent form was signed and witnessed. Standard time-out procedure was performed. Patient was placed in the prone position on the fluoroscopy table and automated blood pressure cuff and pulse oximeter applied. The skin entry point for approaching right SI joints was identified under the most advantageous fluoroscopic view and marked. Following thorough Chlorhexadine preparation of the skin and draping and 1% lidocaine infiltration of the skin entry point and subcutaneous tissues, a 22 gauge spinal needle was placed under fluoroscopic guidance into right SI joints was identified under the most advantageous fluoroscopic view and marked. Following thorough Chlorhexadine preparation of the skin and draping and 1% lidocaine infiltration of the skin entry point and subcutaneous tissues, a 22 gauge spinal needle was placed under fluoroscopic guidance into RIGHT SI joint. Intra-articular placement was confirmed by a clear arthrogram resulting from the injection of 0.25ml Omnipaque 240, 1ml 0.25% Bupivocaine, and 40mg Depomedrol were injected intra-articularily with an initial reproduction of a significant component of the usual pain. Vital signs were stable throughout the procedure and were as recorded in the docflowsheet by the nursing staff. Follow up plans and appointments were discussed with the patient. Post procedure instruction was given as documented in nursing documentation and having met discharge criteria, and was discharged from the [facility]. COMMENTS: Pre-procedure pain level 4/10. post-procedure pain level 3/10. Tierney Hancock MD Pain Management CC: Scarlet Brady
== END 2022-11-18 09:32 | disposition home or self-care (01) ==
LOC: PC 09:31
PROVIDERS: PCP Nurse Practitioner Family; Visit Provider Internal Medicine
DX: M53.3 Sacrococcygeal disorders, not elsewhere classified (principal); M54.50 Low back pain, unspecified
CPT/HCPCS: 27096; 72200; G0260; J1040; Q9967

== ENCOUNTER 2022-12-05 10:06 | Outpatient (CLI) | payer MEDICARE, BC, SELFPAY ==
--- NOTE | 2022-12-05 09:45 | DI.RAD_ITS ---
Exam(s) XR ANKLE LT COMPLETE EXAM: XR ANKLE LT COMPLETE CLINICAL HISTORY: ANKLE PAIN TECHNIQUE: 2D digital imaging was performed of the left ankle. Three images were obtained. AP, lat eral and oblique views were obtained. COMPARISON: CR LEFT ANKLE COMPLETE from 11/17/2014 FINDINGS: BONES: No acute fracture is present. No bony destructive lesion is seen. There is a small spur at the plantar surface of the calcaneus. There is a tiny enthesophyte at the posterior calcaneus. There i s an oblique lucency at the medial aspect of the distal fibula. This may be artifactual. There is n o associated soft tissue swelling. It is only appreciated on the oblique view. JOINTS:The ankle mortise is normally aligned. SOFT TISSUE: Normal. IMPRESSION: No definite acute abnormality. DATA REPOSITORY: RADIATION DOSE DELIVERED:
== END 2022-12-05 10:07 | disposition home or self-care (01) ==
LOC: DIORS 10:07
PROVIDERS: PCP Nurse Practitioner Family; Referring Provider Nurse Practitioner Family; Visit Provider Student in an Organized Health Care Education/Training Program
DX: M25.572 Pain in left ankle and joints of left foot (principal); M21.42 Flat foot [pes planus] (acquired), left foot
CPT/HCPCS: 20605; 99213; 73610; J1030

== ENCOUNTER 2022-12-10 15:09 | Outpatient (REF) | payer MEDICARE, BC, SELFPAY ==
[2022-12-10 21:17] LABS: Abs Immature Grans 0.01 10^3/uL (0.0-0.06); Absolute Basophil Count 0.07 10^3/uL (0.0-0.2); Absolute Eosinophil Count 0.09 10^3/uL (0.0-0.7); Absolute Lymphocyte Count 2.33 10^3/uL (1.2-3.4); Absolute Monocyte Count 0.56 10^3/uL (0.1-0.8); Absolute Neutrophil Count 3.86 10^3/uL (1.2-6.7); Eosinophils % 1.3; HCT 44.6 % (36.0-46.0); HGB 14.2 g/dL (11.2-15.7); Immature Grans % 0.1; Lymphocytes % 33.7; MCH 29.3 pg (27.0-33.0); MCHC 31.8 % (32.0-36.0); MCV 92 fL (80-95); MPV 10.2 fL (8.0-11.0); Monocytes % 8.1; Neutrophils % 55.8; Platelet Count 218 10^3/uL (130-400); RBC 4.84 10^6/uL (3.93-5.22); RDW-SD 40.8 fL; WBC 6.92 10^3/uL (4.4-10.8)
[2022-12-10 21:55] LABS: ALT 29 U/L (14-59); AST 17 U/L (15-37); Albumin 4.3 g/dL (3.4-5.0); Alkaline Phosphatase 64 U/L (46-116); Anion Gap 6.8 mmol/L (3-11); BUN 22 mg/dL (7-18); Bilirubin, Total 0.4 mg/dL (0.2-1.0); CO2 31.2 mmol/L (21.0-32.0); CREATININE 0.8 mg/dL (0.55-1.02); Calcium 9.2 mg/dL (8.5-10.1); Chloride 103 mmol/L (98-107); Estimated GFR 79.71 (mL/min/1.73m2); Glucose 111 mg/dL (74-106); Potassium 4.3 mmol/L (3.5-5.1); Sodium 141 mmol/L (136-145); Total Protein 7.3 g/dL (6.4-8.2); Vitamin B12 443 pg/mL (193-986)
== END 2022-12-10 15:10 | disposition home or self-care (01) ==
LOC: NCHCN 15:09
PROVIDERS: PCP Nurse Practitioner Family; Visit Provider Nurse Practitioner Family
DX: M79.7 Fibromyalgia (principal); I10 Essential (primary) hypertension; F41.8 Other specified anxiety disorders; K76.0 Fatty (change of) liver, not elsewhere classified; K21.9 Gastro-esophageal reflux disease without esophagitis; M85.88 Other specified disorders of bone density and structure, other site; G47.61 Periodic limb movement disorder; E66.8 Other obesity; Z86.39 Personal history of other endocrine, nutritional and metabolic disease
CPT/HCPCS: 80053; 82306; 82607; 83735; 85025

== ENCOUNTER 2023-03-20 01:52 | Outpatient (CLI) | payer MEDICARE, BC, SELFPAY ==
--- NOTE | 2023-03-20 | DI.DEXA_ITS ---
Exam(s) XR DEXA BONE DENSITY W/WO REMIGIO EXAM: XR DEXA BONE DENSITY W/WO REMIGIO CLINICAL HISTORY: DISORDER OF BONE DENSITY M85.88 SCREENING FOR OSTEOPOROSIS TECHNIQUE: COMPARISON: DX XR DEXA BONE DENSITY W/WO REMIGIO from 03/23/2019 FINDINGS: Lateral Spine Image: Unremarkable. No compression deformities identified. Left hip: Total T-Score: -1.8. This compares to -1.7 on the prior examination. Total Z-Score: -0.3 T- and Z-scores: Findings are consistent with osteopenia. There is osteoporosis in the femoral neck with a T-score of -2.5. Lumbar Spine: Total T-Score: -1.2. This compares to -1.4 on the prior examination. Total Z-Score: 0.9 T- and Z-scores: Findings are consistent with osteopenia. IMPRESSION: Osteoporosis in the left femoral neck.
== END 2023-03-20 02:12 ==
LOC: DI 01:53
PROVIDERS: PCP Nurse Practitioner Family; Visit Provider Nurse Practitioner Family
DX: M85.88 Other specified disorders of bone density and structure, other site (principal); Z13.820 Encounter for screening for osteoporosis; M81.8 Other osteoporosis without current pathological fracture
CPT/HCPCS: 77080

== ENCOUNTER → 2023-08-27 01:37 | Outpatient (CLI) | payer MEDICARE, BC, SELFPAY ==
--- NOTE | 2023-08-27 | DI.MAMMO_ITS ---
Exam(s) MAMMO SCREENING EXAM: MAMMO SCREENING CLINICAL HISTORY: SCREENING, Z12.39. TECHNIQUE: Bilateral full field digital CC and MLO mammographic images were obtained with 3D tomosyn thesis and utilizing computer aided detection (CAD). COMPARISON: Prior mammograms were reviewed. FINDINGS: There has been no significant change in the appearance and distribution of the fibroglandular tissue. Asymmetric density and calcifications in the upper-outer quadrant of the right breast remain stable. There are no new spiculated masses nor malignant appearing microcalcification groups. There is no significant architectural distortion nor skin thickening-retraction. IMPRESSION: No radiographic evidence of malignancy. BI-RADS Category 2 - Benign Findings Breast Density - Category C - Heterogeneously dense Breast density Category C or D implies that the patient has dense breast tissue. Dense breast tissue can make it harder to find cancer on a mammogram. Dense breast tissue is also associated with an incr eased risk of breast cancer. This information about the result of the mammogram report was provided to the patient to raise their awareness. Use this report when you speak with the patient about their risks for breast cancer, which includes their family history. At that time, you may recommend additional screening tests (Ultrasoun d or MRI) as these tests may add significant information. A negative radiographic report should not delay biopsy if a dominant or clinically suspicious mass is present. Up to ten percent of cancers are not identified on mammography. A negative report may reinforce clinical impression. Adenosis and dense breasts may obscure an underlying neoplasm. False positive reports average 6 to 10%. Patient will receive a letter notifying them of these results.
== END ==
PROVIDERS: PCP Nurse Practitioner Family; Visit Provider Nurse Practitioner Family
DX: Z12.31 Encounter for screening mammogram for malignant neoplasm of breast (principal)
CPT/HCPCS: 77063; 77067

== ENCOUNTER → 2023-10-29 10:13 | Outpatient (BNVA) | payer MEDICARE, BC, SELFPAY | PROVIDERS: PCP Nurse Practitioner Family; Referring Provider Nurse Practitioner Family; Visit Provider Psychiatry & Neurology Neurology | DX: G62.9 Polyneuropathy, unspecified (principal); R53.83 Other fatigue; R73.9 Hyperglycemia, unspecified | CPT/HCPCS: 95908; 99215; G2212 ==

== ENCOUNTER 2023-11-04 13:59 | Outpatient (CLI) | payer MEDICARE, BC, SELFPAY ==
[2023-11-04 14:23] LABS: ALT 38 U/L (14-59); AST 22 U/L (15-37); Alkaline Phosphatase 53 U/L (46-116); Anion Gap 10.1 mmol/L (3-11); BUN 16 mg/dL (7-18); Bilirubin, Total 0.7 mg/dL (0.2-1.0); CO2 28.9 mmol/L (21.0-32.0); Calcium 9.1 mg/dL (8.5-10.1); Chloride 102 mmol/L (98-107); Estimated GFR 60.61 (mL/min/1.73m2); Glucose 158 mg/dL (74-106); Potassium 3.8 mmol/L (3.5-5.1); Sodium 141 mmol/L (136-145); TSH (W/Ref FT4) 1.91 uIU/mL (0.36-3.74); Total Protein 7.5 g/dL (6.4-8.2)
[2023-11-04 14:24] LABS: Hemoglobin A1C 6.6 % (<5.7)
[2023-11-04 14:39] LABS: PHOSPHORUS 3.5 mg/dL (2.6-4.7)
[2023-11-04 15:36] LABS: Vitamin D 25 Total 42.8 ng/mL (30-100)
[2023-11-04 22:50] LABS: Parathyroid Hormone,Intact 57 pg/mL (19-88)
[2023-11-05 14:11] LABS: Albumin 62.7 % (55.8-66.1); Albumin g/dL 4.5 g/dL (3.6-5.2); Total Protein 7.2 g/dL (6.3-8.2)
[2023-11-05 20:06] LABS: C-Peptide 8.5 ng/mL (1.1 - 4.4)
== END 2023-11-04 14:00 | disposition home or self-care (01) ==
LOC: LBO 14:00
PROVIDERS: Psychiatry & Neurology Neurology; PCP Nurse Practitioner Family; Visit Provider Internal Medicine Endocrinology, Diabetes & Metabolism
DX: G62.9 Polyneuropathy, unspecified (principal); R53.83 Other fatigue; R73.9 Hyperglycemia, unspecified; M81.0 Age-related osteoporosis without current pathological fracture
CPT/HCPCS: 36415; 80053; 82306; 83036; 83970; 84100; 84165; 84443; 84681

== ENCOUNTER 2023-11-12 14:02 | Outpatient (REF) | payer MEDICARE, BC, SELFPAY ==
[2023-11-12 18:29] LABS: Creatinine,24hr Ur 1.02 g/24hr (0.60-1.80); Creatinine,Urine 127.19 mg/dL; Total Volume 800 ml
[2023-11-14 09:39] LABS: Calcium Urine 10.7 mg/dL (See Note); Calcium Urine 24 hr 86 mg/24hr (100-300); Timed Urine Volume 800 mL
== END 2023-11-12 14:03 | disposition home or self-care (01) ==
LOC: LBN 14:02
PROVIDERS: PCP Nurse Practitioner Family; Visit Provider Internal Medicine Endocrinology, Diabetes & Metabolism
DX: M81.0 Age-related osteoporosis without current pathological fracture (principal); E11.9 Type 2 diabetes mellitus without complications; G62.9 Polyneuropathy, unspecified
CPT/HCPCS: 81050; 82340; 82570

== ENCOUNTER → 2023-12-11 04:00 | Outpatient (CLI) | payer MEDICARE, BC, SELFPAY ==
--- NOTE | 2023-12-11 14:10 | DI.US_ITS ---
Exam(s) US ABDOMEN LIMITED EXAM: US ABDOMEN LIMITED CLINICAL HISTORY: STEATOSIS OF LIVER,K76.0 TECHNIQUE: Ultrasound abdomen performed using standard protocol. COMPARISON: US ABDOMEN ULTRASOUND (P) from 04/06/2018 US US ABDOMEN from 08/02/2021 FINDINGS: LIVER: Enlarged at 17.1 cm. Moderate increased echogenicity consistent with hepatic steatosis. No f ocal liver lesions are seen. GALLBLADDER: No evidence of cholelithiasis. No evidence of wall thickening. No pericholecystic fluid identified. GALLEGOS'S SIGN: Negative. BILIARY SYSTEM: No intrahepatic or extrahepatic biliary ductal dilation. Right kidney: No evidence of renal calculi. No evidence of hydronephrosis. No suspicious mass. 4.3 c entimeter simple cyst seen on prior examinations.. PANCREAS: Normal where visualized. ABDOMINAL AORTA AND IVC: Visualized portions normal caliber. ASCITES: None seen. IMPRESSION: Stable hepatic steatosis. DATA REPOSITORY:
== END ==
PROVIDERS: PCP Nurse Practitioner Family; Visit Provider Nurse Practitioner Family
DX: K76.0 Fatty (change of) liver, not elsewhere classified (principal)
CPT/HCPCS: 76705

== ENCOUNTER 2023-12-26 14:31 | Emergency (ER) | payer MEDICARE, BC, SELFPAY ==
[2023-12-26 14:41] VITALS: BP 159/84; PULSE 87; RESP 18; TEMP 35.8; O2SAT 99
--- NOTE | 2023-12-26 14:45 | DI.RAD_ITS ---
Exam(s) XR FOOT RT COMPLETE EXAM: XR FOOT RT COMPLETE CLINICAL HISTORY: question fb, arch stepped on glass. TECHNIQUE: 2D digital imaging was performed. Three views. COMPARISON: CR LEFT FOOT COMPLETE from 11/17/2014 FINDINGS: BONES: No acute fracture is present. No bony destructive lesion is seen. Heel spurs. JOINTS: No dislocation present. SOFT TISSUE: Triangular shaped foreign body seen in the lateral plantar aspect of the soft tissues at the level of the 5th metatarsal head. Is consistent with fragment of glass. IMPRESSION: Foreign body in lateral plantar soft tissues. DATA REPOSITORY: RADIATION DOSE DELIVERED:
--- NOTE | 2023-12-26 15:27 | W.ED.GENAD ---
Discharge Plan Disposition Patient Disposition: Home Condition: Stable Discharge Details Clinical Impression: Cellulitis, Foreign body in foot, right Primary Care Provider: Scarlet Brady ED Provider: Bennett Regalado Home Meds and New Rx's Prescriptions: New cephalexin 500 mg capsule 500 mg PO Q6H 7 Days Qty: 28 0RF Continued atorvastatin 10 mg tablet 10 mg PO DAILY loratadine 10 mg tablet 10 mg PO DAILY Slow-Mag 71.5 mg tablet,delayed release (DR/EC) 71.5 mg PO DAILY duloxetine [Cymbalta] 60 MG capsule,delayed release(DR/EC) 60 mg PO DAILY diphenhydramine-acetaminophen [Tylenol PM Extra Strength] 25-500 mg tablet 1 tab PO QHS PRN gabapentin 800 mg tablet 800 mg PO TID fluticasone propionate [Flonase Allergy Relief] 50 mcg/actuation spray,suspension 1 spray intranasal BID Rx Instructions: administer into each nostril sertraline [Zoloft] 25 mg tablet 100 mg PO DAILY (DME) Custom Orthotics See Rx Instructions .ROUTE .MEDSUPPLY Qty: 1 0RF Hold Instructions: per pt Rx Instructions: Please fit and ma custom orthotics for both feet for posterior tibial tendon dysfunction and foot/ankle pain. Zyrtec 10 mg capsule 10 mg PO DAILY PRN famotidine [Acid Job Site Supervisor (famotidine)] 20 mg tablet 20 mg PO DAILY esomeprazole magnesium [Nexium] 40 mg capsule,delayed release(DR/EC) 40 mg PO DAILY losartan 25 mg tablet 100 mg PO DAILY Patient Comments: 11/17/17-PT STATES CURRENT DOSE IS 50MG DAILY--EMERY LIND 02/10/2023- per referral. 100mg. ZAHIDAorrjimmy LAND acetaminophen [Mapap Extra Strength] 500 MG tablet 1,000 mg PO Q8H PRN PRNQty: 120 3RF Discharge Instructions Instructions: Cellulitis (ED) Additional Instructions: Take the antibiotic as prescribed, soak in warm water, wash with soap and water daily Keep bandage on affected area and return earlier should you have spreading redness, fever, worsening pain Referrals: Scarlet Brady [Primary Care Provider] - Discharge Data Discharge Date/Time-TO BE ENTERED AT DEPARTURE: 12/26/23 17:24 HPI General Date/Time Provider Initiated Documentation: 12/26/23 14:55. HPI Narrative: This 68-year-old female with history of peripheral neuropathy presents with report of suspected foreign body to left foot. Stepped on a piece of glass a week ago and states that she has had pain and swelling since that time. Unsure regarding tetanus. Denies any additional injuries. History of diet-controlled diabetes. Denies fever or chills. Concern for residual foreign body. Related Data Home Medications Medication Instructions Recorded Confirmed duloxetine 60 mg capsule,delayed 60 mg PO DAILY 11/03/15 12/26/23 release (Cymbalta) acetaminophen 500 mg tablet (Mapap 1,000 mg (2 x 500 mg) PO Q8H PRN 06/24/17 12/26/23 Extra Strength) PRN #120 tabs atorvastatin 10 mg tablet 10 mg PO DAILY 03/27/20 12/26/23 loratadine 10 mg tablet 10 mg PO DAILY 03/27/20 12/26/23 magnesium chloride 71.5 mg 71.5 mg PO DAILY 03/27/20 12/26/23 (magnesium chloride) tablet,delayed release (Slow-Mag) diphenhydramine 25 1 tab PO QHS PRN 01/29/22 12/26/23 mg-acetaminophen 500 mg tablet (Tylenol PM Extra Strength) fluticasone propionate 50 1 spray intranasal BID 01/29/22 12/26/23 mcg/actuation nasal spray,suspension (Flonase Allergy Relief) gabapentin 800 mg tablet 800 mg PO TID 01/29/22 12/26/23 sertraline 25 mg tablet (Zoloft) 100 mg PO DAILY 01/29/22 12/26/23 Custom Orthotics #1 ea 01/31/23 12/26/23 cetirizine 10 mg capsule (Zyrtec) 10 mg PO DAILY PRN 02/10/23 12/26/23 esomeprazole magnesium 40 mg 40 mg PO DAILY 02/10/23 12/26/23 capsule,delayed release (Nexium) famotidine 20 mg tablet (Acid 20 mg PO DAILY 02/10/23 12/26/23 Job Site Supervisor (famotidine)) losartan 25 mg tablet 100 mg PO DAILY 02/10/23 12/26/23 cephalexin 500 mg capsule 500 mg PO Q6H 7 days #28 caps 12/26/23 Previous Rx's Medication Instructions Recorded acetaminophen 500 mg tablet (Mapap 1,000 mg (2 x 500 mg) PO Q8H PRN 06/24/17 Extra Strength) PRN #120 tabs Custom Orthotics #1 ea 01/31/23 cephalexin 500 mg capsule 500 mg PO Q6H 7 days #28 caps 12/26/23 Allergies Allergy/AdvReac Type Severity Reaction Status Date / Time lisinopril Allergy Intermediate coughing Verified 12/26/23 14:48 NSAIDS (Non-Steroidal AdvReac Severe Other (See Unverified 12/26/23 14:48 Anti-Inflamma Comment) General Stated Complaint: ForeignBody EFRAÍN: 3 Course Vital Signs Vital signs: Vital Signs Temperature 35.8 C L 12/26/23 14:41 Pulse 87 12/26/23 14:41 Respiratory Rate 18 12/26/23 14:41 Blood Pressure 159/84 H 12/26/23 14:41 Pulse Oximetry 99 12/26/23 14:41 Temperature 35.8 C L 12/26/23 14:41 Temperature Source Skin 12/26/23 14:41 Pulse 87 12/26/23 14:41 Respiratory Rate 18 12/26/23 14:41 Respiratory Effort Normal 12/26/23 14:47 Blood Pressure 159/84 H 12/26/23 14:41 Blood Pressure Position Sitting 12/26/23 14:41 Pulse Oximetry 99 12/26/23 14:41 Oxygen Delivery Method Room Air 12/26/23 14:41 Oxygen Flow Rate 0 12/26/23 14:41 Medical Decision Making This 68-year-old female presents with report of concern for foreign body in her right foot, she states she stepped on a glass bottle approximately a week ago Denies any additional injuries, states it is now slightly swollen and she is concerned it is infected On exam, on her lateral dorsal aspect of her foot she has tenderness with some mild swelling No crepitus, afebrile and nontoxic, history of type 2 diabetes, [id number], diet controlled, will check fingerstick Neurovascularly intact xray if right foot with fb noted per my review I attempted to remove foreign body but patient was unable to tolerate injection of lidocaine, she has approximately 1 cc of 1% lidocaine was injected to the dorsal aspect of her foot and she refused to allow additional attempts Care to be transitioned to Ernie Regalado pending reassessment, LET placed pt declines sedation Quality:SDOH Health Related Social Needs: No Data to Display PFSH All Active Problems (Updated 12/26/23 @ 16:02 by SOFIA Morelos) Foreign body in foot, right (Acute) Cellulitis (Acute) Peripheral neuropathy (Acute) Sinus tarsi syndrome of left ankle (Acute) 40 mg Depo-Medrol injection: 12/05/2022 Pes planus of left foot (Acute) Chronic pain of left ankle (Acute) Ankle pain (Acute) Sacroiliitis (Acute) Dyspepsia (Acute) GERD (gastroesophageal reflux disease) (Chronic) Chest tightness (Acute) DOMINGA (obstructive sleep apnea) (Chronic) T2DM (type 2 diabetes mellitus) (Acute) Chest pain (Acute) Arrhythmia (Acute) Hereditary hemochromatosis (Acute) Medical History Periodic limb movement disorder Pain in left shoulder Pain, joint, shoulder region, right Hip pain, bilateral Knee pain, right Low back pain Anxiety with depression Obesity History of prediabetes NAFLD (nonalcoholic fatty liver disease) Fatigue Ankle pain, left Lumbar pain Esophagitis Gastritis A-fib Pt. states diagnosed a few years ago-poor historian Right rotator cuff tendinitis (01/29/17) Depression (11/03/15) BCC (basal cell carcinoma of skin) Seronegative arthritis Glaucoma Osteopenia Constipation Mixed incontinence Essential hypertension (11/03/15) Adhesive capsulitis of right shoulder (01/29/17) Fibromyalgia Insomnia Lipoma of abdominal wall Surgical History History of esophagogastroduodenoscopy (EGD) (~2019) 03/2022 section x2 Appendectomy Social History Smoking/Tobacco Use Status: Never Smoking risk assessment performed?: Yes Alcohol Intake: former Substance use type: does not use Household members: none current occupation: 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 augustus hernandez historian-unable to fully complete pre-op as patient has to abruptly go. Informed anesthesia to review prior to case Sign Out Sign Out Data: Sign Out Comment: pending procedure fb Last updated by Yadi Belcher PA at 12/26/23 16:13
[2023-12-26] MEDS: Lidocaine/Epinephri/Tetracaine Topical Gel 3 ML TP (16:14)
--- NOTE | 2023-12-26 16:21 | ED.PROG_ITS ---
Date of service: 12/26/23 Time of Service: 16:21 Medical Decision Making This dictation utilizes [id number] dictation software and may contain unedited grammatical errors. Patient seen in sign-out from Yadi Belcher PA-C, please see her note. Essentially, this 68 y/o F presents to ED today with a chief complaint of stepped on a glass bottle 1 week ago to R foot- mid-sole, and has tried to get some glass out of it but still having pain with ambulation- patient states no fever, no redness to foot, no purulent drainage. Tdap updated here in dept. Patient was intolerant to attempt to inject lidocaine to area for FB removal- signed out with second attempt by myself. Patients' medical history: t2DM, per ipheral neuropathy. Family and social history: noncontributory. Pertinent exam findings / vital signs include vitals stable, small scabbed over puncture to mid-sole of R foot, otherwise no erythema or purulent drainage. Differential / pathologies of concern include retained FB, cellulitis. Diagnostic studies of: -XR R Foot - shows small piece of glas sin soft tissue of mid-sole. Interventions of: -LET Gel applied, second attempt at local anesthetic injection, and FB removal with exploratory incision. ED Course/Assessment/Plan: 68-year-old female presented 1 week after stepping on glass bottle with a shard of glass still remaining in her very small puncture wound in the right lateral mid sole, she was very intolerant of local anesthetic but let gel allow me to instill about 4 mL of 1% lidocaine, I have widened the wound about 0.1 cm on either side of the linear puncture wound and was able to visualize the clear piece of glass and was removed with forceps. I confirmed its removal with a repeat radiograph, patient had been prescribed Keflex by prior provider and was discharged home with strict instructions to keep soaking the foot and keep it very clean with multiple dressing changes per day and topical antibiotics for the first few days as well. Recommend Tylenol and ibuprofen for pain as needed. Findings not consistent with severe cellulitis- patient was Rx'd Keflex by Yadi Belcher PA-C prior to sign-out. Tdap updated, patient tolerating WB. Disposition of Cellulitis, Foreign Body of Foot, right. Patient verbalized understanding of the plan and return to ED criteria and engaged in shared decision making. Medical Records Medical records reviewed: Yes I reviewed the patient's medical records. Imaging Data Radiologic Study: Attestation: I personally reviewed and interpreted this imaging study as follows: Imaging: X-Ray Radiologist's impression: EXAM: XR FOOT RT COMPLETE CLINICAL HISTORY: question fb, arch stepped on glass. TECHNIQUE: 2D digital imaging was performed. Three views. COMPARISON: CR LEFT FOOT COMPLETE from 11/17/2014 FINDINGS: BONES: No acute fracture is present. No bony destructive lesion is seen. Heel spurs. JOINTS: No dislocation present. SOFT TISSUE: Triangular shaped foreign body seen in the lateral plantar aspect of the soft tissues at the level of the 5th metatarsal head. Is consistent with fragment of glass. IMPRESSION: Foreign body in lateral plantar soft tissues. Radiologic Study #2: Attestation: I personally reviewed and interpreted this imaging study as follows: Imaging: X-Ray Radiologist's impression: EXAM: XR FOOT RT LIMITED CLINICAL HISTORY: FB removal check - LAT view please, mid-sole FB. TECHNIQUE: 2D digital imaging was performed. COMPARISON: CR XR FOOT RT COMPLETE from 12/26/2023 FINDINGS: Single lateral view Compared to images of earlier same date the previously described radiopaque foreign body in the plantar soft tissues is no longer seen. IMPRESSION: As above. Quality:SDOH Health Related Social Needs: No Data to Display Procedures Foreign Body Removal Time Out Performed: yes Site: right and foot Description of foreign body: other (glass) Sedation/Analgesia: none Technique: removal with forceps, incision made to facilitate removal and irrigation Confirmed by:: direct visualization and radiograph Complications: none Post-procedure exam: awake, alert, normal BP, normal HR and normal O2 sat Neurovascular: normal distal pulse, normal capillary fill, distal light touch sensation intact and distal motor function normal Sign Out Sign Out Data: Sign Out Comment: pending procedure fb Last updated by Yadi Belcher PA at 12/26/23 16:13 Discharge Plan Disposition Patient Disposition: Home Condition: Stable Discharge Details Clinical Impression: Cellulitis, Foreign body in foot, right Primary Care Provider: Scarlet Brady ED Provider: Bennett Regalado Home Meds and New Rx's Prescriptions: New cephalexin 500 mg capsule 500 mg PO Q6H 7 Days Qty: 28 0RF Continued atorvastatin 10 mg tablet 10 mg PO DAILY loratadine 10 mg tablet 10 mg PO DAILY Slow-Mag 71.5 mg tablet,delayed release (DR/EC) 71.5 mg PO DAILY duloxetine [Cymbalta] 60 MG capsule,delayed release(DR/EC) 60 mg PO DAILY diphenhydramine-acetaminophen [Tylenol PM Extra Strength] 25-500 mg tablet 1 tab PO QHS PRN gabapentin 800 mg tablet 800 mg PO TID fluticasone propionate [Flonase Allergy Relief] 50 mcg/actuation spray,suspension 1 spray intranasal BID Rx Instructions: administer into each nostril sertraline [Zoloft] 25 mg tablet 100 mg PO DAILY (DME) Custom Orthotics See Rx Instructions .ROUTE .MEDSUPPLY Qty: 1 0RF Hold Instructions: per pt Rx Instructions: Please fit and ma custom orthotics for both feet for posterior tibial tendon dysfunction and foot/ankle pain. Zyrtec 10 mg capsule 10 mg PO DAILY PRN famotidine [Acid Education Supervisor (famotidine)] 20 mg tablet 20 mg PO DAILY esomeprazole magnesium [Nexium] 40 mg capsule,delayed release(DR/EC) 40 mg PO DAILY losartan 25 mg tablet 100 mg PO DAILY Patient Comments: 11/17/17-PT STATES CURRENT DOSE IS 50MG DAILY--EMERY LIND 02/10/2023- per referral. 100mg. CMorrison EMERY acetaminophen [Mapap Extra Strength] 500 MG tablet 1,000 mg PO Q8H PRN PRNQty: 120 3RF Discharge Instructions Instructions: Cellulitis (ED) Additional Instructions: Take the antibiotic as prescribed, soak in warm water, wash with soap and water daily Keep bandage on affected area and return earlier should you have spreading redness, fever, worsening pain Referrals: Scarlet Brady [Primary Care Provider] - Discharge Data Discharge Date/Time-TO BE ENTERED AT DEPARTURE: 12/26/23 17:24
--- NOTE | 2023-12-26 16:52 | DI.RAD_ITS ---
Exam(s) XR FOOT RT LIMITED EXAM: XR FOOT RT LIMITED CLINICAL HISTORY: FB removal check - LAT view please, mid-sole FB. TECHNIQUE: 2D digital imaging was performed. COMPARISON: CR XR FOOT RT COMPLETE from 12/26/2023 FINDINGS: Single lateral view Compared to images of earlier same date the previously described radiopaque foreign body in the plant ar soft tissues is no longer seen. IMPRESSION: As above. DATA REPOSITORY: RADIATION DOSE DELIVERED:
== END 2023-12-26 17:24 | disposition home or self-care (01) ==
PROVIDERS: Emergency Provider Physician Assistant; PCP Nurse Practitioner Family
DX: S91.341A Puncture wound with foreign body, right foot, initial encounter (principal); W22.8XXA Striking against or struck by other objects, initial encounter; L03.90 Cellulitis, unspecified; E11.40 Type 2 diabetes mellitus with diabetic neuropathy, unspecified; Z79.899 Other long term (current) drug therapy
CPT/HCPCS: 00123; 28190; 82962; 90471; 90715; 99284; 73620; 73630

== ENCOUNTER 2023-12-31 11:30 | Emergency (ER) | payer MEDICARE, BC, SELFPAY ==
--- NOTE | 2023-12-31 11:30 | DI.CT_ITS ---
Exam(s) CT HEAD CERVICAL SPINE WO EXAM: CT HEAD CERVICAL SPINE WO CLINICAL HISTORY: fall. TECHNIQUE: Imaging Protocol: Axial computed tomography images with coronal and sagittal reformatted images were created and reviewed COMPARISON: No exams were available for comparison FINDINGS: Head CT Ventricles and Extra axial spaces: Normal in size and morphology for the patient's age. Hemorrhage: None. Cerebral parenchyma: No evidence of mass or acute infarct. Midline shift: None. Brainstem/Cerebellum: Normal. Calvarium: Normal. Visualized Paranasal sinuses/Mastoids: Small amount of mucous retention at the floor of the left maxi llary sinus. Soft tissues: Unremarkable. Cervical Spine CT BONES: Vertebral body heights are maintained. Alignment is normal. There is no evidence of acute frac ture. Degenerative disc changes and facet degenerative changes are seen . SOFT TISSUES: No paraspinal hematoma. The airway appears intact. No pneumothorax is seen at the lung apices. IMPRESSION: Head CT: No acute abnormality. C-spine CT: Degenerative changes, no acute abnormality. RADIATION DOSE DELIVERED: Total DLP DATA REPOSITORY: All CT scans at this facility are submitted to the National Radiology Data Registry (NRDR) Dose Index Registry (DIR) with the [employer] (ACR). RADIATION OPTIMIZATION: All CT scans at this facility use at least one of these dose optimization te chniques: automated exposure control; mA and/or kV adjustment per patient size (includes targeted exa ms where dose is matched to clinical indication); or iterative reconstruction.
[2023-12-31 11:37] VITALS: BP 159/81; PULSE 96; RESP 18; TEMP 36.7; O2SAT 97
[2023-12-31] MEDS: Acetaminophen 500 MG TAB 1000 MG PO (12:01)
[2023-12-31] MEDS: Methocarbamol 500 MG TAB 1000 MG PO (12:01)
--- NOTE | 2023-12-31 13:39 | ED.GENADUL_ITS ---
Discharge Plan Disposition Patient Disposition: Home Condition: Stable Discharge Details Clinical Impression: Neck pain, Fall Primary Care Provider: Scarlet Brady ED Provider: Maribel Kelly Home Meds and New Rx's Prescriptions: New methocarbamol 500 mg tablet 500 mg PO TID PRN (Reason: spasm, ) Qty: 20 0RF No Action atorvastatin 10 mg tablet 10 mg PO DAILY loratadine 10 mg tablet 10 mg PO DAILY Slow-Mag 71.5 mg tablet,delayed release (DR/EC) 71.5 mg PO DAILY duloxetine [Cymbalta] 60 MG capsule,delayed release(DR/EC) 60 mg PO DAILY diphenhydramine-acetaminophen [Tylenol PM Extra Strength] 25-500 mg tablet 1 tab PO QHS PRN gabapentin 800 mg tablet 800 mg PO TID fluticasone propionate [Flonase Allergy Relief] 50 mcg/actuation spray,suspension 1 spray intranasal BID Rx Instructions: administer into each nostril sertraline [Zoloft] 25 mg tablet 100 mg PO DAILY (DME) Custom Orthotics See Rx Instructions .ROUTE .MEDSUPPLY Qty: 1 0RF Hold Instructions: per pt Rx Instructions: Please fit and ma custom orthotics for both feet for posterior tibial tendon dysfunction and foot/ankle pain. Zyrtec 10 mg capsule 10 mg PO DAILY PRN famotidine [Acid Pathology Technologist (famotidine)] 20 mg tablet 20 mg PO DAILY esomeprazole magnesium [Nexium] 40 mg capsule,delayed release(DR/EC) 40 mg PO DAILY losartan 25 mg tablet 100 mg PO DAILY Patient Comments: 11/17/17-PT STATES CURRENT DOSE IS 50MG DAILY--EMERY LIND 02/10/2023- per referral. 100mg. CMorrjimmy LAND acetaminophen [Mapap Extra Strength] 500 MG tablet 1,000 mg PO Q8H PRN PRNQty: 120 3RF cephalexin 500 mg capsule 500 mg PO Q6H 7 Days Qty: 28 0RF Discharge Instructions Instructions: Neck Pain (ED) Additional Instructions: He may continue to have some additional soreness. Heat pack, gentle range of motion exercises, and the medication prescribed should help. You can also take Motrin and Tylenol. Stand Alone Forms: Work Release HPI General Date/Time Provider Initiated Documentation: 12/31/23 11:43 . Limitations to Documentation: no limitations . Information obtained by: patient . HPI Narrative: 68-year-old female with past medical history of diabetes presents for evaluation after a fall. Patient reports that yesterday she slipped on the snow and ice. She landed on her butt and then fell backwards hitting her head. No loss of consciousness. She states that today she started having some soreness and stiffness in her neck. She states it feels like whiplash. She not have any headache., No blurry vision nausea or vomiting. Related Data Home Medications Medication Instructions Recorded Confirmed duloxetine 60 mg capsule,delayed 60 mg PO DAILY 11/03/15 12/26/23 release (Cymbalta) acetaminophen 500 mg tablet (Mapap 1,000 mg (2 x 500 mg) PO Q8H PRN 06/24/17 12/26/23 Extra Strength) PRN #120 tabs atorvastatin 10 mg tablet 10 mg PO DAILY 03/27/20 12/26/23 loratadine 10 mg tablet 10 mg PO DAILY 03/27/20 12/26/23 magnesium chloride 71.5 mg 71.5 mg PO DAILY 03/27/20 12/26/23 (magnesium chloride) tablet,delayed release (Slow-Mag) diphenhydramine 25 1 tab PO QHS PRN 01/29/22 12/26/23 mg-acetaminophen 500 mg tablet (Tylenol PM Extra Strength) fluticasone propionate 50 1 spray intranasal BID 01/29/22 12/26/23 mcg/actuation nasal spray,suspension (Flonase Allergy Relief) gabapentin 800 mg tablet 800 mg PO TID 01/29/22 12/26/23 sertraline 25 mg tablet (Zoloft) 100 mg PO DAILY 01/29/22 12/26/23 Custom Orthotics #1 ea 01/31/23 12/26/23 cetirizine 10 mg capsule (Zyrtec) 10 mg PO DAILY PRN 02/10/23 12/26/23 esomeprazole magnesium 40 mg 40 mg PO DAILY 02/10/23 12/26/23 capsule,delayed release (Nexium) famotidine 20 mg tablet (Acid 20 mg PO DAILY 02/10/23 12/26/23 Pathology Technologist (famotidine)) losartan 25 mg tablet 100 mg PO DAILY 02/10/23 12/26/23 cephalexin 500 mg capsule 500 mg PO Q6H 7 days #28 caps 12/26/23 methocarbamol 500 mg tablet 500 mg PO TID PRN spasm, #20 tabs 12/31/23 Previous Rx's Medication Instructions Recorded acetaminophen 500 mg tablet (Mapap 1,000 mg (2 x 500 mg) PO Q8H PRN 06/24/17 Extra Strength) PRN #120 tabs Custom Orthotics #1 ea 01/31/23 cephalexin 500 mg capsule 500 mg PO Q6H 7 days #28 caps 12/26/23 methocarbamol 500 mg tablet 500 mg PO TID PRN spasm, #20 tabs 12/31/23 Allergies Allergy/AdvReac Type Severity Reaction Status Date / Time lisinopril Allergy Intermediate coughing Verified 12/26/23 14:48 NSAIDS (Non-Steroidal AdvReac Severe Other (See Unverified 12/26/23 14:48 Anti-Inflamma Comment) General Stated Complaint: Fall/Non TraumaCriteria EFRAÍN: 3 Exam Narrative Exam Narrative: Review of Systems: All systems reviewed & are unremarkable except as noted in HPI and below Well-developed, no acute distress NCAT , no contusion No midline C-spine tenderness, step-off, full range of motion of neck PERRL, normal conjunctiva RRR Unlabored respiratory effort Nondistended abdomen Extremities w/o deformity, no cyanosis, no edema No rashes or lesions. no focal neurologic deficits, normal strength and sensation in bilateral upper extremities Appropriate mood and affect Course Vital Signs Vital signs: Vital Signs Temperature 36.7 C 12/31/23 11:37 Pulse 96 H 12/31/23 11:37 Respiratory Rate 18 12/31/23 11:37 Blood Pressure 159/81 H 12/31/23 11:37 Pulse Oximetry 97 12/31/23 11:37 Temperature 36.7 C 12/31/23 11:37 Temperature Source Tympanic 12/31/23 11:37 Pulse 96 H 12/31/23 11:37 Respiratory Rate 18 12/31/23 11:37 Respiratory Effort Normal, Non-Labored 12/31/23 12:42 Blood Pressure 159/81 H 12/31/23 11:37 Blood Pressure Position Sitting 12/31/23 11:37 Pulse Oximetry 97 12/31/23 11:37 Oxygen Delivery Method Room Air 12/31/23 11:37 Oxygen Flow Rate 0 12/31/23 11:37 Pain Level 7 12/31/23 11:37 Medical Decision Making Emergent evaluation of neck pain after a fall. Patient has no neurologic deficit. Given age and complaints, patient sent for CT imaging. Head and C- spine imaged. There is no acute abnormality noted. She was given Robaxin and Tylenol. A prescription for Robaxin was sent to the pharmacy. Recommend continuation of these medications as needed other supportive care guidance was provided. Return precautions advised. Medical Records Medical records reviewed: Yes I reviewed the patient's medical records. Quality:[facility] Health Related Social Needs: No Data to Display [facility] All Active Problems Fall (Acute) Neck pain (Acute) Foreign body in foot, right (Acute) Cellulitis (Acute) Peripheral neuropathy (Acute) Sinus tarsi syndrome of left ankle (Acute) 40 mg Depo-Medrol injection: 12/05/2022 Pes planus of left foot (Acute) Chronic pain of left ankle (Acute) Ankle pain (Acute) Sacroiliitis (Acute) Dyspepsia (Acute) GERD (gastroesophageal reflux disease) (Chronic) Chest tightness (Acute) DOMINGA (obstructive sleep apnea) (Chronic) T2DM (type 2 diabetes mellitus) (Acute) Chest pain (Acute) Arrhythmia (Acute) Hereditary hemochromatosis (Acute) Medical History Periodic limb movement disorder Pain in left shoulder Pain, joint, shoulder region, right Hip pain, bilateral Knee pain, right Low back pain Anxiety with depression Obesity History of prediabetes NAFLD (nonalcoholic fatty liver disease) Fatigue Ankle pain, left Lumbar pain Esophagitis Gastritis A-fib Pt. states diagnosed a few years ago-poor historian Right rotator cuff tendinitis (01/29/17) Depression (11/03/15) BCC (basal cell carcinoma of skin) Seronegative arthritis Glaucoma Osteopenia Constipation Mixed incontinence Essential hypertension (11/03/15) Adhesive capsulitis of right shoulder (01/29/17) Fibromyalgia Insomnia Lipoma of abdominal wall Surgical History History of esophagogastroduodenoscopy (EGD) (~2019) 03/2022 section x2 Appendectomy Social History Smoking/Tobacco Use Status: Never Smoking risk assessment performed?: Yes Alcohol Intake: former Substance use type: does not use Household members: none 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 augustus hernandez historian-unable to fully complete pre-op as patient has to abruptly go. Informed anesthesia to review prior to case
== END 2023-12-31 12:48 | disposition home or self-care (01) ==
PROVIDERS: Emergency Provider Emergency Medicine; PCP Nurse Practitioner Family
DX: M54.2 Cervicalgia (principal); R51.9 Headache, unspecified; E11.9 Type 2 diabetes mellitus without complications; W00.0XXA Fall on same level due to ice and snow, initial encounter; Y93.01 Activity, walking, marching and hiking
CPT/HCPCS: 99284; 70450; 72125

== ENCOUNTER 2024-03-03 14:02 | Outpatient (REF) | payer MEDICARE, BC, SELFPAY ==
[2024-03-03 15:18] LABS: Magnesium 2.1 mg/dL (1.8-2.4)
[2024-03-03 16:18] LABS: Vitamin B12 464 pg/mL (193-986)
== END 2024-03-03 14:03 | disposition home or self-care (01) ==
LOC: NCHCN 14:02
PROVIDERS: PCP Nurse Practitioner Family; Visit Provider Nurse Practitioner Family
DX: E11.9 Type 2 diabetes mellitus without complications (principal)
CPT/HCPCS: 82607; 83036; 83735

== ENCOUNTER 2024-10-26 02:26 | Outpatient (CLI) | payer MEDICARE, BC, SELFPAY ==
--- NOTE | 2024-10-26 | DI.MAMMO_ITS ---
Exam(s) MAMMO SCREENING EXAM: MAMMO SCREENING CLINICAL HISTORY: SCREENING MAMMO Z12.31 TECHNIQUE: Mammograms were interpreted according to the usual protocol including computer analysis w [employer] CAD system, tomosynthesis and C-view imaging. COMPARISON: 2014 through 2019 FINDINGS: The breasts are composed of heterogeneously dense fibroglandular densities, Breast Density category C . No suspicious masses or suspicious microcalcifications are seen. Stable bilateral areas of nodularit y. No skin thickening or abnormal axillary lymph nodes are seen. There has been no significant change from prior exams. IMPRESSION: BI-RADS Category 2 - Negative Mammogram with benign findings. Yearly screening mammography is recomm ended. Breast Density Category C, heterogeneously Dense. The mammogram demonstrates the patient's breast tissue is dense. Dense breast tissue is very common a nd is not abnormal but dense breast tissue can make it harder to find cancer on a mammogram. Also, de nse breast tissue may increase breast cancer risk. This information about the result of the mammogram report was provided to the patient to raise their awareness. Use this report when you speak with the patient about their risks for breast cancer, which includes their family history. At that time, you may recommend additional screening tests (Ultrasound or MRI) as they might be useful based on their r isk. A negative radiographic report should not delay biopsy if a dominant or clinically suspicious mass is present. Up to ten percent of cancers are not identified on mammography. A negative report may reinforce clinical impression. Adenosis and dense breasts may obscure an underlying neoplasm. False positive reports average 6 to 10%.
== END 2024-10-26 02:46 ==
LOC: DI 02:26
PROVIDERS: PCP Nurse Practitioner Family; Visit Provider Nurse Practitioner Family
DX: Z12.31 Encounter for screening mammogram for malignant neoplasm of breast (principal); R92.333 Mammographic heterogeneous density, bilateral breasts
CPT/HCPCS: 77063; 77067

== ENCOUNTER → 2024-10-27 09:06 | Outpatient (BNVA) | payer MEDICARE, BC, SELFPAY | PROVIDERS: PCP Nurse Practitioner Family; Referring Provider Nurse Practitioner Family; Visit Provider Psychiatry & Neurology Neurology | DX: G62.9 Polyneuropathy, unspecified (principal) | CPT/HCPCS: 99214 ==

== ENCOUNTER 2024-11-02 12:29 | Outpatient (REF) | payer MEDICARE, BC, SELFPAY ==
[2024-11-02 15:03] LABS: Abs Immature Grans 0.01 10^3/uL (0.0-0.06); Absolute Basophil Count 0.07 10^3/uL (0.0-0.2); Absolute Eosinophil Count 0.13 10^3/uL (0.0-0.7); Absolute Lymphocyte Count 1.75 10^3/uL (1.2-3.4); Absolute Monocyte Count 0.48 10^3/uL (0.1-0.8); Absolute Neutrophil Count 2.58 10^3/uL (1.2-6.7); Basophils % 1.4 %; Eosinophils % 2.6 %; Immature Grans % 0.2 %; Lymphocytes % 34.9 %; MCH 29.5 pg (27.0-33.0); MCHC 31.8 % (32.0-36.0); MCV 93 fL (80-95); MPV 10.4 fL (8.0-11.0); Monocytes % 9.6 %; Neutrophils % 51.3 %; Platelet Count 210 10^3/uL (130-400); RBC 4.75 10^6/uL (3.93-5.22); RDW-SD 41.6 fL; WBC 5.02 10^3/uL (4.4-10.8)
[2024-11-02 15:42] LABS: ALT 26 U/L (14-59); AST 17 U/L (15-37); Albumin 4.1 g/dL (3.4-5.0); Alkaline Phosphatase 69 U/L (46-116); Anion Gap 5.1 mmol/L (3-11); BUN 14 mg/dL (7-18); Bilirubin, Total 0.72 mg/dL (0.2-1.0); CO2 32.9 mmol/L (21.0-32.0); Calcium 9.4 mg/dL (8.5-10.1); Chloride 106 mmol/L (98-107); Estimated GFR 60.23 (mL/min/1.73m2); Glucose 130 mg/dL (74-106); Magnesium 2.1 mg/dL (1.8-2.4); Potassium 4.4 mmol/L (3.5-5.1); Sodium 144 mmol/L (136-145); Total Protein 7.1 g/dL (6.4-8.2); Vitamin B12 545 pg/mL (193-986)
== END 2024-11-02 12:30 | disposition home or self-care (01) ==
LOC: NCHCN 12:29
PROVIDERS: PCP Nurse Practitioner Family; Visit Provider Nurse Practitioner Family
DX: K76.0 Fatty (change of) liver, not elsewhere classified (principal)
CPT/HCPCS: 80053; 82607; 83735; 85025

== ENCOUNTER 2024-11-22 02:37 | Outpatient (CLI) | payer MEDICARE, BC, SELFPAY ==
[2024-11-22 11:36] LABS: Estimated GFR 60.23 (mL/min/1.73m2)
== END 2024-11-22 02:38 | disposition home or self-care (01) ==
LOC: LBO 02:38
PROVIDERS: PCP Nurse Practitioner Family; Visit Provider Internal Medicine Endocrinology, Diabetes & Metabolism
DX: M81.0 Age-related osteoporosis without current pathological fracture (principal)
CPT/HCPCS: 36415; 82565

== ENCOUNTER 2024-12-01 02:13 | Outpatient (RCR) | payer MEDICARE, BC, SELFPAY ==
[2024-12-01] MEDS: ZOLEDRONIC ACID/MANNITOL/WATER 5 MG/100 ML BTL 300 MG IVPB (12:55)
[2024-12-01] MEDS: Normal Saline Flush 10 ML SYR IVP (12:56)
== END 2024-12-10 23:59 | disposition home or self-care (01) ==
LOC: INF 02:13
PROVIDERS: PCP Nurse Practitioner Family; Visit Provider Family Medicine
DX: M81.0 Age-related osteoporosis without current pathological fracture (principal)
CPT/HCPCS: 96365; J3489

== ENCOUNTER 2024-12-30 12:01 | Outpatient (CLI) | payer MEDICARE, BC, SELFPAY ==
--- NOTE | 2024-12-30 11:22 | DI.RAD_ITS ---
Exam(s) XR THUMB RT EXAM: XR THUMB RT CLINICAL HISTORY: pain in Rt finger M79.644. TECHNIQUE: 2D digital imaging was performed. Three views. COMPARISON: CR XR THUMB LT from 12/30/2024 FINDINGS: BONES: No acute fracture is present. No bony destructive lesion is seen. JOINTS: No dislocation present. Minimal spurring at the interphalangeal joint of the thumb. Mild na rrowing and mild spurring at the 1st carpal metacarpal joint. Mild joint space narrowing is noted in the interphalangeal joints of the fingers. SOFT TISSUE: Normal. IMPRESSION: Mild degenerative changes, greatest at the 1st carpal metacarpal joint. DATA REPOSITORY: RADIATION DOSE DELIVERED:
--- NOTE | 2024-12-30 11:22 | DI.RAD_ITS ---
Exam(s) XR THUMB LT EXAM: XR THUMB LT CLINICAL HISTORY: pain in LT finger M79.645. TECHNIQUE: 2D digital imaging was performed. Three views. COMPARISON: None. FINDINGS: BONES: No acute fracture is present. No bony destructive lesion is seen. JOINTS: Minimal spurring at the interphalangeal joint of the thumb. Narrowing and periarticular spur ring well as some bony fragmentation at the 1st carpal metacarpal joint. Some lateral subluxation is also present. SOFT TISSUE: Small smoothly marginated calcification in the dorsal aspect of the head of the proximal phalanx of the thumb. IMPRESSION: Advanced degenerative change at the 1st carpal metacarpal joint. DATA REPOSITORY: RADIATION DOSE DELIVERED:
== END 2024-12-30 12:21 ==
LOC: DI 12:02
PROVIDERS: PCP Nurse Practitioner Family; Visit Provider Anesthesiology Pain Medicine
DX: M18.0 Bilateral primary osteoarthritis of first carpometacarpal joints (principal)
CPT/HCPCS: 73140

== ENCOUNTER 2025-01-18 00:48 | Outpatient (CLI) | payer MEDICARE, BC, SELFPAY ==
--- NOTE | 2025-01-18 | DI.US_ITS ---
Exam(s) US ABDOMEN LIMITED EXAM: US ABDOMEN LIMITED CLINICAL HISTORY: STEATOSIS OF LIVER, K76.0 FATTY LIVER TECHNIQUE: Ultrasound abdomen performed using standard protocol. COMPARISON: US US ABDOMEN LIMITED from 12/11/2023 FINDINGS: LIVER: Mildly enlarged. Moderately increasedechogenicity and decreased through and through transmiss ion, consistent with moderate hepatic steatosis. Findings appear similar to prior. No focal liver l esions are seen. GALLBLADDER: No evidence of cholelithiasis. No evidence of wall thickening. No pericholecystic fluid identified. GALLEGOS'S SIGN: Negative. BILIARY SYSTEM: No intrahepatic or extrahepatic biliary ductal dilation. RIGHT KIDNEY: Normal size. No evidence of renal calculi. No evidence of hydronephrosis. No suspicious renal mass. No cyst identified. PANCREAS: Normal where visualized. ABDOMINAL AORTA AND IVC: Visualized portions normal caliber. ASCITES: None seen. IMPRESSION: Stable hepatic steatosis. DATA REPOSITORY:
== END 2025-01-18 01:08 ==
LOC: DI 00:48
PROVIDERS: PCP Nurse Practitioner Family; Visit Provider Nurse Practitioner Family
DX: K76.0 Fatty (change of) liver, not elsewhere classified (principal)
CPT/HCPCS: 76705

== ENCOUNTER 2025-02-01 10:14 | Outpatient (CLI) | payer MEDICARE, BC, SELFPAY ==
--- NOTE | 2025-02-01 06:00 | DI.RAD_ITS ---
Exam(s) XR PAIN CLINIC FLUORO JOINT IN EXAM: XR PAIN CLINIC FLUORO JOINT IN CLINICAL HISTORY: DX: Bilateral thumb joint pain TECHNIQUE: 2D and realtime digital imaging was performed. CONTRAST MATERIAL: Refer to procedure report. COMPARISON: No exams were available for comparison FINDINGS: Fluoroscopy was provided for Dr. Olsen during the performance of a 1st CMC joint injection. Sharda hernandez refer to the procedure report for complete details. Ka,r=0.32 mGy IMPRESSION: RADIATION DOSE DELIVERED: 0.0 0.0 0
[2025-02-01 10:44] VITALS: BP 138/87; PULSE 92; RESP 18; TEMP 36.7; O2SAT 98
--- NOTE | 2025-02-01 10:51 | PDOC.PAIN ---
Date of service: 02/01/25 Time of Service: 11:25 Pain Managment Procedure Note Procedure Note Procedure Note: Intra-articular Joint Injection of Steroid ? Location: Bilateral CMC joint injection ? Pre-procedure Diagnosis: M18.11 M18.12 first carpometacarpal joint with arthritis ? Post-procedure Diagnosis:? The same as above ? Sedation:? ? None ? Estimated blood loss:? less than 2 cc ? Surgeon:? José Antonio Olsen MD ? Procedure Detail:? The patient verbalized understanding of risks and signed written consent to proceed with bilateral diagnostic, therapeutic intra-articular CMC injection.? The patient was taken to the block suite.? The patient was placed in the lateral position.? Pillows were used for proper patient positioning and comfort.? Time out was performed in the procedure room with nursing staff confirming the patient's identity, procedure to be performed, allergies, and any blood thinning or anti-platelet medications.? The skin overlying the right and left CMC joint was prepped with ChloraPrep and draped in a sterile fashion. Sterile gloves were used, a face mask was worn, and new single dose vials of all medications were used with the top being swabbed with alcohol and given time to dry prior to withdrawal of medication. A/P fluoroscopic view was utilized to identify the target site. With fluoroscopic assistance, using a 25g needle the joint space was entered with ease. Injection of 0.25 cc of Omnipaque 240 contrast revealed appropriate spread within the joint capsule in the AP view.? Aspiration was performed and negative for blood or fluid.? This was followed by 10 mg of methylprednisolone mixed with 0.25 cc?s of 1% lidocaine.? The needles were then gently removed.? The patient was discharged home in stable condition without complication. Permanent images saved and recorded. Pain pre-procedure 10 post-procedure 010 Plan:? Follow up prn COMMENT: Can repeat in 3-6 month if patient gets good long-lasting relief Coding Conscious Sedation used for procedure: No CPT Codes: Inj,Bursa/Tendon w/US Small *BILATERAL* - [id number] ([id number]~G5) no ultrasound Fluoroscopic guidance (non spine inj.) - [id number] ([id number] ~G) No ultrasound Additional Codes: Date of Service (85306) Date of service: 02/01/25
[2025-02-01 11:26] VITALS: PULSE 76; O2SAT 98
[2025-02-01] MEDS: Nerve Block Tray 1 EACH MC (11:27)
[2025-02-01] MEDS: Bupivacaine 0.25% Pres-Free 30 ML VIAL IJ (11:27)
[2025-02-01] MEDS: Omnipaque 240 MG/ML 50 ML BTL IJ (11:27)
[2025-02-01] MEDS: methylPREDNISolone ACETATE 80 MG/ML VIAL IJ (11:28)
== END 2025-02-01 10:15 | disposition home or self-care (01) ==
PROVIDERS: PCP Nurse Practitioner Family; Visit Provider Anesthesiology Pain Medicine
DX: M18.11 Unilateral primary osteoarthritis of first carpometacarpal joint, right hand (principal); M18.12 Unilateral primary osteoarthritis of first carpometacarpal joint, left hand
CPT/HCPCS: 20604; 77002; J0665; J1010; Q9967

== ENCOUNTER 2025-04-06 10:29 | Emergency (ER) | payer MEDICARE, BC, SELFPAY ==
[2025-04-06 10:34] VITALS: BP 98/74; PULSE 74; RESP 18; TEMP 36.8; O2SAT 94
--- NOTE | 2025-04-06 10:44 | W.ED.GENAD ---
Discharge Plan Disposition Patient Disposition: Home Condition: Stable Discharge Details Clinical Impression: Diarrhea Primary Care Provider: Scarlet Brady ED Provider: Bennett Regalado Home Meds and New Rx's Prescriptions: Continued atorvastatin 10 mg tablet 10 mg PO DAILY loratadine 10 mg tablet 10 mg PO DAILY Slow-Mag 71.5 mg tablet,delayed release (DR/EC) 84 mg PO DAILY vitamin B complex Tablet 1 tab PO DAILY Ozempic 0.25 mg or 0.5 mg (2 mg/3 mL) pen injector 0.25 mg subcut QWEEK Rx Instructions: for 4 weeks rabeprazole 20 mg tablet,delayed release (DR/EC) 20 mg PO DAILY duloxetine [Cymbalta] 60 MG capsule,delayed release(DR/EC) 60 mg PO DAILY diphenhydramine-acetaminophen [Tylenol PM Extra Strength] 25-500 mg tablet 1 tab PO QHS PRN gabapentin 800 mg tablet 800 mg PO TID fluticasone propionate [Flonase Allergy Relief] 50 mcg/actuation spray,suspension 1 spray intranasal BID Rx Instructions: administer into each nostril (DME) Custom Orthotics See Rx Instructions .ROUTE .MEDSUPPLY Qty: 1 0RF Rx Instructions: Please fit and ma custom orthotics for both feet for posterior tibial tendon dysfunction and foot/ankle pain. Zyrtec 10 mg capsule 10 mg PO DAILY PRN famotidine [Acid Towboat Captain (famotidine)] 20 mg tablet 20 mg PO DAILY esomeprazole magnesium [Nexium] 40 mg capsule,delayed release(DR/EC) 40 mg PO DAILY losartan 25 mg tablet 100 mg PO DAILY Patient Comments: 11/17/17-PT STATES CURRENT DOSE IS 50MG DAILY--EMERY LIND 02/10/2023- per referral. 100mg. CMorrjimmy LAND acetaminophen [Mapap Extra Strength] 500 MG tablet 1,000 mg PO Q8H PRN PRNQty: 120 3RF Patient Comments: prn Discharge Instructions Instructions: Probiotics, Stool Test, Diarrhea, Adult ED Additional Instructions: You were seen in the emergency department for your diarrhea and loose stools, we did give you some fluids, your labs are all normal except for a mild increase in your lipase which is a pancreatic enzyme, please have this rechecked in about 2 weeks by her primary care provider or return to the emergency department for any worsening symptoms prior to that. You are unable to give a stool sample at today's visit, we have sent you home with a stool collection kit, please follow the directions and turn this into the lab in appropriate manner and then wait for results, your primary care provider can follow-up with any results from these tests. Please take [id number] Imodium A-D and probiotics to see if this helps with your stool problem otherwise return for any profound weakness or other emergent concerns. Referrals: Scarlet Brady [Primary Care Provider, Medicine] Discharge Data Discharge Date/Time-TO BE ENTERED AT DEPARTURE: 04/06/25 12:55 HPI General Date/Time Provider Initiated Documentation: 04/06/25 10:44. HPI Narrative: 70 year-old female presents to ED today by POV/ambulating with a chief complaint of watery diarrhea on Friday- but improved, just feels weak and low energy- recommended for IV fluids by PCP with onset for the past 3 days. Quality described as generalized weakness but is able to keep down liquids and scant food, no radiation to severe abdominal pain, fever, cough, shortness of breath, chest pain, vomiting, black stools. Severity is described as mild to moderate. Palliating factors include nothing specific. Provoking factors include nothing specific. Patient not anticoagulated. Related Data Home Medications ?Medication ?Instructions ?Recorded ?Confirmed duloxetine 60 mg capsule,delayed 60 mg PO DAILY 11/03/15 04/06/25 release (Cymbalta) acetaminophen 500 mg tablet (Mapap 1,000 mg (2 x 500 mg) PO Q8H PRN 06/24/17 04/06/25 Extra Strength) PRN #120 tabs atorvastatin 10 mg tablet 10 mg PO DAILY 03/27/20 04/06/25 loratadine 10 mg tablet 10 mg PO DAILY 03/27/20 04/06/25 magnesium chloride 71.5 mg 84 mg PO DAILY 03/27/20 04/06/25 (magnesium chloride) tablet,delayed release (Slow-Mag) diphenhydramine 25 1 tab PO QHS PRN 01/29/22 04/06/25 mg-acetaminophen 500 mg tablet (Tylenol PM Extra Strength) fluticasone propionate 50 1 spray intranasal BID 01/29/22 04/06/25 mcg/actuation nasal spray,suspension (Flonase Allergy Relief) gabapentin 800 mg tablet 800 mg PO TID 01/29/22 04/06/25 Custom Orthotics #1 ea 01/31/23 04/06/25 cetirizine 10 mg capsule (Zyrtec) 10 mg PO DAILY PRN 02/10/23 04/06/25 esomeprazole magnesium 40 mg 40 mg PO DAILY 02/10/23 04/06/25 capsule,delayed release (Nexium) famotidine 20 mg tablet (Acid 20 mg PO DAILY 02/10/23 04/06/25 Towboat Captain (famotidine)) losartan 25 mg tablet 100 mg PO DAILY 02/10/23 04/06/25 rabeprazole 20 mg tablet,delayed 20 mg PO DAILY 12/22/24 04/06/25 release semaglutide 0.25 mg or 0.5 mg (2 0.25 mg subcut QWEEK 12/22/24 04/06/25 mg/3 mL) subcutaneous pen injector ([place]) vitamin B complex 1 tab PO DAILY 12/22/24 04/06/25 Previous Rx's ?Medication ?Instructions ?Recorded acetaminophen 500 mg tablet (Mapap 1,000 mg (2 x 500 mg) PO Q8H PRN 06/24/17 Extra Strength) PRN #120 tabs Custom Orthotics #1 ea 01/31/23 Allergies Allergy/AdvReac Type Severity Reaction Status Date / Time house dust Allergy Intermediate Other (See Verified 04/06/25 10:38 Comment) lisinopril Allergy Intermediate coughing Verified 04/06/25 10:38 NSAIDS (Non-Steroidal AdvReac Severe Other (See Verified 04/06/25 10:38 Anti-Inflamma Comment) General Stated Complaint: Nausea/Vomit/Diar EFRAÍN: 3 Review of Systems All systems reviewed & are unremarkable except as noted in HPI and below Exam Narrative Exam Narrative: GENERAL APPEARANCE: Well-nourished, non-toxic, awake and alert, atraumatic, no acute distress. SKIN: Warm, pink, dry, intact, without rashes/lesions/ulcerations. HEAD: Normocephalic, atraumatic, normal hair distribution for gender/age. EYES: Normal conjunctiva, no exudates on lids/lashes. ENT: Nares patent, no circumoral cyanosis, no facial swelling NECK: Supple, trachea midline, painless cervical ROM. LUNGS/CHEST: Lungs CTA bilaterally, non-labored respirations, normal A/P diameter, symmetrical expansion, no chest wall deformity HEART (CV/PV): Regular rate and rhythm without murmur, no peripheral edema, no JVD. ABDOMEN: Soft, non-distended, no guarding, mild diffuse tenderness, no focal LLQ tenderness, no rebound tenderness. MSK: Normal ROM, no swelling/deformity to bilateral UEs or LEs, moving all extremities without weakness, no cyanosis, spine midline without tenderness, normal curvature. NEURO: Mental Status AAOx4 - alert to person, place, time, events No facial droop, no forehead involvement. Motor: No focal weakness - strength 5/5 in bilateral UEs and LEs, proximal and distal, symmetric. Sensory: sensation intact to light touch globally. Gait normal: patient ambulated without ataxia into ED room. PSYCH: euthymic, cooperative, pleasant, appropriate speech Course Vital Signs Vital signs: Vital Signs Temperature 36.8 C 04/06/25 10:34 Pulse 74 04/06/25 10:34 Respiratory Rate 18 04/06/25 10:34 Blood Pressure 98/74 L 04/06/25 10:34 Pulse Oximetry 94 04/06/25 10:34 Temperature 36.8 C 04/06/25 10:34 Temperature Source Oral 04/06/25 10:34 Pulse 74 04/06/25 10:34 Respiratory Rate 18 04/06/25 10:34 Blood Pressure 98/74 L 04/06/25 10:34 Blood Pressure Position Sitting 04/06/25 10:34 Pulse Oximetry 94 04/06/25 10:34 Oxygen Delivery Method Room Air 04/06/25 10:34 Oxygen Flow Rate 0 04/06/25 10:34 Pain Level 2 04/06/25 10:34 Medical Decision Making This dictation utilizes [id number] dictation software and may contain unedited grammatical errors. 70 year-old female presents to ED today by POV/ambulating with a chief complaint of watery diarrhea on Friday- but improved, just feels weak and low energy- recommended for IV fluids by PCP with onset for the past 3 days. Quality described as generalized weakness but is able to keep down liquids and scant food, no radiation to severe abdominal pain, fever, cough, shortness of breath, chest pain, vomiting, black stools. Severity is described as mild to moderate. Palliating factors include nothing specific. Provoking factors include nothing specific. Patients' medical history: None FLD, osteopenia, constipation, fibromyalgia, T2DM. Family and social history: Noncontributory. Pertinent exam findings / vital signs include mild diffuse tenderness to abdomen, no rebound tenderness, no focal LLQ tenderness, benign cardiopulmonary status. Differential / pathologies of concern include gastroenteritis, mild dehydration, not sepsis, unlikely diverticulitis. Diagnostic studies of: - CBC, CMP, lactate, magnesium, lipase, UA. Sent home with stool test kit - CBC shows no acute abnormality - Lactate negative - CMP shows no acute abnormality save for a mild increase in creatinine 1.1 - Lipase is mildly elevated at 106 but not to the level of acute pancreatitis - UA is benign Interventions of: -1g Tylenol, 1L IVF LR. ED Course/Assessment/Plan: 70-year-old female presents with a few days of diarrhea that is improving, she was unable to provide stool sample at today's visit her labs showed no acute abnormalities and her exam is reassuring, I did provide her some IV fluids and recommend she take Imodium A-D, I did send her home with a stool collection kit for testing. I stressed strict return criteria for any intractable nausea or vomiting, black or tarry stools, severe diarrhea with weakness or any developing worsening abdominal pain and fever. Findings not consistent with diverticulitis, anemia, sepsis, inability to tolerate p.o. intake. Disposition of Diarrhea. Patient verbalized understanding of the plan and return to ED criteria and engaged in shared decision making. Medical Records Medical records reviewed: Yes I reviewed the patient's medical records. Lab Data Lab results reviewed: Yes I reviewed the patient's lab results. Labs: Laboratory Tests Range/Units 04/06/25 04/06/25 11:00 12:00 WBC (4.4-10.8) 10^3/uL 4.90 RBC (3.93-5.22) 10^6/uL 4.91 Hgb (11.2-15.7) g/dL 14.9 Hct (36.0-46.0) % 44.6 MCV (80-95) fL 91 MCH (27.0-33.0) pg 30.3 MCHC (32.0-36.0) % 33.4 RDW (11.7-14.6) % 12.1 Plt Count (130-400) 10^3/uL 169 MPV (8.0-11.0) fL 9.7 Immature Gran % % 0.2 Neutrophils % % 61.3 Lymphocytes % % 24.7 Monocytes % % 11.2 Eosinophils % % 2.0 Basophils % % 0.6 Nucleated RBC % (0.0-0.3) % 0.0 Absolute Neutrophils (1.2-6.7) 10^3/uL 3.00 Absolute Lymphocytes (1.2-3.4) 10^3/uL 1.21 Absolute Monocytes (0.1-0.8) 10^3/uL 0.55 Absolute Eosinophils (0.0-0.7) 10^3/uL 0.10 Absolute Basophils (0.0-0.2) 10^3/uL 0.03 VBG Lactate (<or=2.0) mmol/L 1.1 Sodium (136-145) mmol/L 139 Potassium (3.5-5.1) mmol/L 4.0 Chloride (98-107) mmol/L 101 Carbon Dioxide (21.0-32.0) mmol/L 28.9 Anion Gap (3-11) mmol/L 9.1 BUN (7-18) mg/dL 15 Creatinine (0.55-1.02) mg/dL 1.1 H Est GFR (CKD-EPI 2020) (mL/min/1.73m2) 53.39 Glucose (74-106) mg/dL 120 H Calcium (8.5-10.1) mg/dL 8.7 Magnesium (1.8-2.4) mg/dL 2.2 Total Bilirubin (0.2-1.0) mg/dL 0.6 AST (15-37) U/L 24 ALT (14-59) U/L 30 Alkaline Phosphatase (46-116) U/L 51 Total Protein (6.4-8.2) g/dL 7.5 Albumin (3.4-5.0) g/dL 3.7 Lipase (<78) U/L 106 H Urine Color (Yellow) Yellow Urine Clarity (Clear) Clear Urine pH (5-8) 5.5 Ur Specific [place] (1.005-1.025) <= 1.005 Urine Protein (Neg-Trace) mg/dL Negative Urine Ketones (Negative) mg/dL Negative Urine Blood (Negative) Negative Urine Nitrite (Negative) Negative Urine Bilirubin (Negative) Negative Urine Urobilinogen (Up to 0.2) mg/dL 0.2 Ur Leukocyte Esterase (Negative) Negative Urine Glucose (Negative) mg/dL Negative PFSH All Active Problems (Updated 04/06/25 @ 12:41 by SOFIA Parada) Diarrhea (Acute) Bilateral thumb pain (Acute) Peripheral neuropathy (Acute) Sinus tarsi syndrome of left ankle (Acute) 40 mg Depo-Medrol injection: 12/05/2022 Pes planus of left foot (Acute) Chronic pain of left ankle (Acute) Ankle pain (Acute) Sacroiliitis (Acute) Dyspepsia (Acute) GERD (gastroesophageal reflux disease) (Chronic) Chest tightness (Acute) DOMINGA (obstructive sleep apnea) (Chronic) T2DM (type 2 diabetes mellitus) (Acute) Chest pain (Acute) Arrhythmia (Acute) Hereditary hemochromatosis (Acute) Medical History Periodic limb movement disorder Pain in left shoulder Pain, joint, shoulder region, right Hip pain, bilateral Knee pain, right Low back pain Anxiety with depression Obesity History of prediabetes NAFLD (nonalcoholic fatty liver disease) Fatigue Ankle pain, left Lumbar pain Esophagitis Gastritis Right rotator cuff tendinitis (01/29/17) Depression (11/03/15) BCC (basal cell carcinoma of skin) Seronegative arthritis Glaucoma Osteopenia Constipation Mixed incontinence Essential hypertension (11/03/15) Adhesive capsulitis of right shoulder (01/29/17) Fibromyalgia Insomnia Lipoma of abdominal wall Surgical History History of esophagogastroduodenoscopy (EGD) (~2019) 03/2022 section x2 Appendectomy Social History Smoking/Tobacco Use Status: Never Smoking risk assessment performed?: Yes Alcohol Intake: former Substance use type: does not use Household members: none current occupation: 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 Informed anesthesia to review prior to case
[2025-04-06] MEDS: ACETAMINOPHEN 1,000 MG/100 ML BAG 400 MG IVPB (11:09)
[2025-04-06] MEDS: Lactated Ringers 1,000 ML 1000 ML IV (11:09)
[2025-04-06 11:11] LABS: Lactate 1.1 mmol/L (<or=2.0)
[2025-04-06 11:12] LABS: Abs Immature Grans 0.01 10^3/uL (0.0-0.06); Absolute Basophil Count 0.03 10^3/uL (0.0-0.2); Absolute Lymphocyte Count 1.21 10^3/uL (1.2-3.4); Absolute Monocyte Count 0.55 10^3/uL (0.1-0.8); Basophils % 0.6 %; HCT 44.6 % (36.0-46.0); HGB 14.9 g/dL (11.2-15.7); Immature Grans % 0.2 %; Lymphocytes % 24.7 %; MCH 30.3 pg (27.0-33.0); MCHC 33.4 % (32.0-36.0); MCV 91 fL (80-95); MPV 9.7 fL (8.0-11.0); Monocytes % 11.2 %; Neutrophils % 61.3 %; Platelet Count 169 10^3/uL (130-400); RBC 4.91 10^6/uL (3.93-5.22); RDW 12.1 % (11.7-14.6); RDW-SD 40.5 fL
[2025-04-06 11:15] VITALS: BP 98/74; PULSE 74; RESP 18; TEMP 36.8; O2SAT 94
[2025-04-06 11:32] LABS: ALT 30 U/L (14-59); AST 24 U/L (15-37); Albumin 3.7 g/dL (3.4-5.0); Alkaline Phosphatase 51 U/L (46-116); Anion Gap 9.1 mmol/L (3-11); BUN 15 mg/dL (7-18); Bilirubin, Total 0.6 mg/dL (0.2-1.0); CO2 28.9 mmol/L (21.0-32.0); CREATININE 1.1 mg/dL (0.55-1.02); Calcium 8.7 mg/dL (8.5-10.1); Chloride 101 mmol/L (98-107); Estimated GFR 53.39 (mL/min/1.73m2); Glucose 120 mg/dL (74-106); Lipase 106 U/L (<78); Magnesium 2.2 mg/dL (1.8-2.4); Sodium 139 mmol/L (136-145); Total Protein 7.5 g/dL (6.4-8.2)
--- NOTE | 2025-04-06 12:14 | NUR.NOTE ---
Nursing Note:pt reports no abd s/s, and no urge to pass stool. stool sample remains uncollected. pt expresses frustration still being in the er when staff hasn't even done anything
[2025-04-06 12:17] LABS: Bilirubin Negative (Negative); Blood Negative (Negative); Clarity Clear (Clear); Glucose Negative (Negative); Ketones Negative (Negative); Leukocyte Esterase Negative (Negative); Nitrite Negative (Negative); Specific Gravity <= 1.005 (1.005-1.025); Urobilinogen 0.2 mg/dL (Up to 0.2); pH 5.5 (5-8)
[2025-04-06 12:52] VITALS: BP 108/68; PULSE 76; RESP 18; O2SAT 98
--- NOTE | 2025-04-26 16:05 | NUR.NOTE ---
Accessed patient for positive campylobacter positive result from lab, and to see if antibiotics received on discharge. Nursing Note:
--- NOTE | 2025-04-26 18:28 | W.ED.FU ---
Date of service: 04/26/25 Time of Service: 18:28 Follow Up Plan: Patient seen by myself on 04/06 for gastroenteritis that had not improved, sent to the ED for IV fluids by PCP. Was sent home with stool collection kit, states that she dropped off the kit the ED sent her home with and it was not correct per lab and they sent her home with another kit which she dropped off about 2 weeks after initial visit. She states that her diarrhea has been better but still has some intermittent loose and watery stools every few days but nothing to the degree that it was prior. I counseled her that one of her stool kids tested positive for Campylobacter and we should treat this due to its association with Guillain-Martines? syndrome, the patient's prescription was sent to [facility] in [place] and she will start tomorrow.
== END 2025-04-06 12:55 | disposition home or self-care (01) ==
PROVIDERS: Emergency Provider Physician Assistant; PCP Nurse Practitioner Family
DX: R19.7 Diarrhea, unspecified (principal); I10 Essential (primary) hypertension; E11.9 Type 2 diabetes mellitus without complications
CPT/HCPCS: 36415; 80053; 83690; 96365; 96366; 99284; 81003; 83605; 83735; 85025; 99283; J0131

== ENCOUNTER 2025-04-20 13:42 | Outpatient (REF) | payer MEDICARE, BC, SELFPAY | END 2025-04-20 13:43 | disposition home or self-care (01) | LOC: LBN 13:42 | PROVIDERS: PCP Nurse Practitioner Family; Visit Provider Physician Assistant | DX: R19.7 Diarrhea, unspecified (principal) | CPT/HCPCS: 87015; 87269; 87272; 87505; 83630; 83993 ==

== ENCOUNTER 2025-04-25 19:19 | Outpatient (REF) | payer MEDICARE, BC, SELFPAY ==
[2025-04-26 14:52] LABS: Shiga Toxin PCR Negative (Negative); Shigella/Enteroinvasive Ecoli Negative (Negative)
[2025-04-26 16:02] LABS: Campylobacter PCR Positive (Negative)
== END 2025-04-25 19:20 | disposition home or self-care (01) ==
LOC: LBN 19:19
PROVIDERS: PCP Nurse Practitioner Family; Visit Provider Physician Assistant
DX: R19.7 Diarrhea, unspecified (principal)
CPT/HCPCS: 87015; 87269; 87272; 87505

== ENCOUNTER 2025-08-29 09:14 | Outpatient (CLI) | payer MEDICARE, BC, SELFPAY ==
[2025-08-29 10:54] LABS: Magnesium 2.0 mg/dL (1.6-2.6)
[2025-08-29 10:56] LABS: ALT 15 U/L (10-49); AST 22 U/L (<34); Albumin 4.4 g/dL (3.4-5.0); Alkaline Phosphatase 47 U/L (46-116); Anion Gap 9.1 mmol/L (3-11); BUN 11 mg/dL (9-23); Bilirubin, Total 0.60 mg/dL (0.2-1.2); CO2 28.9 mmol/L (20.0-31.0); Calcium 9.2 mg/dL (8.3-10.6); Chloride 102 mmol/L (98-107); Glucose 99 mg/dL (74-106); Potassium 4.2 mmol/L (3.5-5.1); Sodium 140 mmol/L (136-145); Total Protein 7.0 g/dL (5.7-8.2)
[2025-08-29 10:57] LABS: Vitamin D 25 Total 45 ng/mL (30-100)
[2025-08-31 16:27] LABS: Calcium, Random Ur 15 mg/dL; Creatinine, Random Ur 239 mg/dL (16 - 326)
== END 2025-08-29 09:15 | disposition home or self-care (01) ==
LOC: LBO 09:14
PROVIDERS: PCP Nurse Practitioner Family; Visit Provider Internal Medicine Endocrinology, Diabetes & Metabolism
DX: M81.0 Age-related osteoporosis without current pathological fracture (principal); E11.9 Type 2 diabetes mellitus without complications; G62.9 Polyneuropathy, unspecified
CPT/HCPCS: 36415; 80053; 82306; 82310; 83735; 83970; 84100; 84681

== ENCOUNTER → 2025-09-15 00:17 | Outpatient (CLI) | payer MEDICARE, BC, SELFPAY ==
--- NOTE | 2025-09-15 12:03 | DI.DEXA_ITS ---
Exam(s) XR DEXA BONE DENSITY W/WO REMIGIO EXAM: XR DEXA BONE DENSITY W/WO REMIGIO CLINICAL HISTORY: AGE RELATED OSTEOPOROSIS, M81.0 TECHNIQUE: COMPARISON: CR XR DEXA BONE DENSITY W/WO REMIGIO from 03/20/2023 FINDINGS: Lateral Spine Image: Unremarkable. No compression deformities identified. Left hip: Total T-Score: -1.4. This compares to -1.8 on the prior examination. Total Z-Score: 0.2 T- and Z-scores: The total T-score is consistent with osteopenia. Note is made of osteoporosis in the femoral neck with a T-score of -2.6. Lumbar Spine: Total T-Score: -0.3. This compares to -1.2 on the prior examination. Total Z-Score: 2.0 T- and Z-scores: Within normal limits. IMPRESSION: There is osteoporosis seen in the left femoral neck with a T-score of -2.6.
== END ==
LOC: DI 00:17
PROVIDERS: PCP Nurse Practitioner Family; Visit Provider Internal Medicine Endocrinology, Diabetes & Metabolism
DX: M81.0 Age-related osteoporosis without current pathological fracture (principal); E11.9 Type 2 diabetes mellitus without complications; G62.9 Polyneuropathy, unspecified
CPT/HCPCS: 77080